=== PATIENT | female | born 1970 | race Caucasian/White ===

== ENCOUNTER 2016-10-22 11:44 | Emergency (ER) | payer OTHER ==
[~2016-10-22 11:44] MED LIST: BIOT50004 PO; CALCTAB73 PO; COUM2.5T11 PO; DOCU100T8 PO; DOCUSATE OR; EFFE150C PO; LEUP375KIT IM; PERC5TAB6 PO; TYLE167L PO; [UNRECOGNIZED DRUG - OTHER] OR; [UNRECOGNIZED DRUG - OTHER] OR; iron OR; multivitamin OR; vitamin B; vitamin B12 OR
[2016-10-22 12:37] LABS: BASO % 0.3 % (0.0-1.0); EOS # 0.1 K/mm3 (0.0-0.50); EOS % 1.5 % (0.0-3.0); LARGE UNSTAINED CELL # 0.2 K/mm3 (0.0-0.4); LARGE UNSTAINED CELL % 1.6 % (0.0-4.0); LYMPH # 0.9 K/mm3 (1.5-4.5); LYMPH % 10.1 % (24.0-44.0); MEAN CORPUSCULAR HEMOGLOBIN 29.1 pg (27.0-33.0); MEAN CORPUSCULAR HGB CONC 33.1 g/dl (32.0-36.5); MONO # 0.4 K/mm3 (0.0-0.8); MONO % 4.6 % (0.0-5.0); NEUTROPHILS # 7.6 K/mm3 (1.8-7.7); PLATELET COUNT, AUTOMATED 314 k/mm3 (150-450); RED CELL DISTRIBUTION WIDTH 12.3 % (11.5-14.5); WHITE BLOOD COUNT 9.3 K/mm3 (4.0-10.0)
[2016-10-22 12:53] LABS: CONTROL LINE HCG INT CTR LINE PRESENT
[2016-10-22 13:02] LABS: ALBUMIN 3.6 GM/DL (3.2-5.2); ALBUMIN/GLOBULIN RATIO 0.92 (1.00-1.93); ALKALINE PHOSPHATASE 58 U/L (45-117); ALT/SGPT 39 U/L (12-78); ANION GAP 7 MEQ/L (8-16); AST/SGOT 24 U/L (15-37); BILIRUBIN,DIRECT < 0.1 MG/DL (0.0-0.2); BILIRUBIN,TOTAL 0.2 MG/DL (0.2-1.0); BLOOD UREA NITROGEN 12 MG/DL (7-18); CALCIUM LEVEL 8.4 MG/DL (8.5-10.1); CARBON DIOXIDE LEVEL 29 MEQ/L (21-32); CHLORIDE LEVEL 106 MEQ/L (98-107); CREATININE FOR GFR 0.75 MG/DL (0.55-1.02); FREE T4 0.81 NG/DL (0.76-1.46); GLOMERULAR FILTRATION RATE > 60.0 (>58); GLUCOSE, FASTING 86 MG/DL (70-105); POTASSIUM SERUM 4.4 MEQ/L (3.5-5.1); SODIUM LEVEL 142 MEQ/L (136-145); TOTAL PROTEIN 7.5 GM/DL (6.4-8.2)
--- NOTE | 2016-10-22 13:20 | REP ---
Clinical: Near-syncopal episode . Comparison: 06/22/2015 . Technique: PA and lateral. Findings: The mediastinum and cardiac silhouette are normal. The lung quesada are clear and without acute consolidation, effusion, or pneumothorax. The skeletal structures are intact and normal. Impression: 1. No acute cardiopulmonary process. Signed by Guillermo Jonas MD 10/22/2016 01:12 P
--- NOTE | 2016-10-22 15:54 | EDDOCDS ---
Physician Documentation [facility] Name: Na De Jesus Age: 46 yrs Sex: Female : 1970 Arrival Date: 10/22/2016 Time: 11:44 Bed 21 Private MD: Angelina Dunn A Disposition: 10/22 15:44 Critical Care: Critical care not applicable. le Disposition: 10/22/16 15:44 Discharged to Home/Self Care. Impression: Dizziness and giddiness. - Condition is Stable. - Discharge Instructions: Dizziness. - Medication Reconciliation, Local Pharmacy Hours form. - Follow up: Angelina Dunn; When: Call to arrange an appointment; Reason: Further diagnostic work-up, Recheck today's complaints, Continuance of care. - Problem is new. - Symptoms are resolved. - Notes: Keep hydrated Return to the ED for any further concerns Historical: - Allergies: no known allergies; - Home Meds: 1. Effexor XR 150 mg Oral cp24 1 cap once daily - PMHx: none; - PSHx: Gastric Bypass; hip replacement; - Social history: Smoking status: Patient/guardian denies using No barriers to communication noted, The patient speaks fluent Tanzanian. - Family history: Pertinent for similar symptoms recently. - : The pt / caregiver states he / she is not on anticoagulants. Home medication list is obtained from the patient. - Exposure Risk Screening:: None identified. NET DEVELOPER WITH [facility]: 11:51 LMP 09/20/2016 dls Vital Signs: 11:45 BP 132 / 71; Pulse 85; Resp 18; Temp 97.0(O); Pulse Ox 99% ; Weight 72.57 kg / 159.99 ct3 lbs (R); Height 5 ft. 6 in. (167.64 cm); Pain 0/10; 12:34 BP 98 / 54 Supine; Pulse 75; Pulse Ox 98% on R/A; kr3 12:34 BP 132 / 71 Sitting; Pulse 78; Pulse Ox 100% on R/A; kr3 12:34 BP 116 / 72 Standing; Pulse 88; Pulse Ox 100% on R/A; kr3 12:49 BP 96 / 60 (auto/); kr3 12:49 Pulse 64 MON; Pulse Ox 100% ; kr3 13:19 BP 101 / 66 (auto/); kr3 13:19 Pulse 76 MON; Pulse Ox 99% ; kr3 13:49 BP 108 / 62 (auto/); kr3 13:49 Pulse 68 MON; Pulse Ox 99% ; kr3 14:19 BP 109 / 62 (auto/); kr3 14:19 Pulse 62 MON; Pulse Ox 99% ; kr3 15:19 BP 100 / 55 (auto/); ld5 15:19 Pulse 68 MON; Pulse Ox 98% ; ld5 15:52 BP 102 / 56; Pulse 66; Resp 16; Temp 97.1; Pulse Ox 98% on R/A; Pain 0/10; ld5 11:45 Body Mass Index 25.82 (72.57 kg, 167.64 cm) ct3 MDM: 11:57 ECG WITH READING ER PHYS+CARDIAG ordered. EDMS 11:59 Orthostatic VS ordered. ml 11:59 IV Saline Lock ordered. ml 12:00 CBC with Diff Ordered. EDMS 12:00 MED Profile Ordered. EDMS 12:00 CIP Ordered. EDMS 12:00 Troponin Ordered. EDMS 12:00 Liver Profile Ordered. EDMS 12:00 FreeT4 with TSH Ordered. EDMS 12:00 HCG,Serum Qualitative Ordered. EDMS 12:46 Chest, 2 View (pa\E\lat) Ordered. EDMS 13:19 NS 0.9% 1000 ml IV at bolus once ordered. le 13:19 Repeat EKG (put time details section) ordered. le 13:19 Redraw CIP &Troponin (put time in details section) ordered. le 13:20 CBC with Diff Reviewed. le 13:20 MED Profile Reviewed. le 13:20 Liver Profile Reviewed. le 13:20 CIP Reviewed. le 13:20 Troponin Reviewed. le 13:20 FreeT4 with TSH Reviewed. le 13:20 HCG,Serum Qualitative Reviewed. le 13:21 REGULAR+DIET ordered. EDMS 14:34 Redraw CIP &Troponin (put time in details section) complete. ar3 14:34 CARDIAC MARKER PANEL Ordered. EDMS 14:35 Repeat EKG (put time details section) complete. ar3 14:35 ECG WITH READING ER PHYS ordered. EDMS 15:13 CARDIAC MARKER PANEL Reviewed. le 15:13 Chest, 2 View (pa\E\lat) Reviewed. le 15:14 Ambulate Patient to Assess Patient Safety ordered. le 15:34 Financial registration complete. gjb Administered Medications: 13:32 Drug: NS 0.9% 1000 ml [sodium chloride 0.9 % intravenous solution] Route: IV; Rate: kr3 bolus; Site: right antecubital; 15:42 Follow up: IV Status: Completed infusion; IV Intake: 1000ml ld5 Signatures: Dispatcher [employer] EDMS Jaleesa Chilel MD MD ml Scott, Debra, RN RN dls Tequila Chavez, AUDIO PRODUCTION ENGINEER AUDIO PRODUCTION ENGINEER Simi Sánchez, BRENDA SOUP PERSON ar3 Maddie Diego RN RN ld5 Mel Rivers Kathleen RN kr3 The chart was reviewed and I authenticate all verbal orders and agree with the evaluation and treatment provided.Corrections: (The following items were deleted from the chart) 12:56 12:00 Chest, 1 view+XR ordered. EDMS EDMS MTDD
--- NOTE | 2016-10-22 15:54 | EDDOCDS ---
Nurse's Notes [facility] Name: Na De Jesus Age: 46 yrs Sex: Female : 1970 Arrival Date: 10/22/2016 Time: 11:44 Bed 21 Private MD: Angelina Dunn A Diagnosis: Dizziness and giddiness Presentation: 10/22 11:47 Presenting complaint: Patient states: Pt presents stating felt funny when she woke up dls this morning went out and shoveled snow developed palpations and dizziness pt states almost drove off road and almost fell down coming into ED. Pt states she feels like vision is blurry denies chest pain hx gastric bypass. Adult Sepsis Screening: The patient does not have new or worsening altered mentation. Patient's respiratory rate is less than 22. Systolic blood pressure is greater than 100. Patient has a qSOFA score of 0- Negative Sepsis Screen. Suicide/Homicide risk assessment- the patient denies having any suicidal and/or homicidal ideations and does not present with any other emotional, behavioral or mental health complaints. Status: Patient is not a student services coordinator or dependent. Transition of care: patient was not received from another setting of care. 11:47 Acuity: SALINA Level 3 dls 11:47 Method Of Arrival: Walkin/Carried/Asstd dls Triage Assessment: 11:51 General: Appears cachectic, uncomfortable, well developed, well nourished, Behavior is dls cooperative. Pain: Denies pain. HIV screening NA for this visit Offered previously. DEBEADER: 11:51 LMP 09/20/2016 dls Historical: - Allergies: no known allergies; - Home Meds: 1. Effexor XR 150 mg Oral cp24 1 cap once daily - PMHx: none; - PSHx: Gastric Bypass; hip replacement; - Social history: Smoking status: Patient/guardian denies using No barriers to communication noted, The patient speaks fluent Indonesian. - Family history: Pertinent for similar symptoms recently. - : The pt / caregiver states he / she is not on anticoagulants. Home medication list is obtained from the patient. - Exposure Risk Screening:: None identified. Screenin:32 Screening information is obtained from the patient. Fall risk: No risks identified. kr3 Assistance ADL's: requires no assistance with activities of daily living. Abuse/DV Screen: The patient / caregiver reports he/she is: not in a situation that causes fear, pain or injury. Nutritional screening: No deficits noted. Advance Directives: Currently, there is no health care proxy. home support is adequate. Assessment: 12:32 Reassessment: Patient appears in no apparent distress at this time. Reassessment: kr3 orthostatic vital signs obtained with no problems. Patient reports feels best when lying on stretcher with was able to sit and stand with no difficulty. . Pain: Denies pain. Respiratory: Respiratory effort is even, unlabored. Derm: Skin is pink, warm & dry. 13:32 Reassessment: Patient appears in no apparent distress at this time. Cardiovascular: kr3 Rhythm is sinus rhythm. Respiratory: Respiratory pattern is regular. Derm: Skin is pink, warm & dry. 14:36 Reassessment: Patient appears in no apparent distress at this time. Patient states kr3 feeling better. Neurological: Level of Consciousness is awake, alert. Respiratory: Respiratory effort is even, unlabored. 15:42 General: Pt ambulated down the ramesh and to the bathroom. Tolerated well. Gait steady. ld5 Denies dizziness at this time. Reports feeling "a whole lot better". Provider aware. Will continue to monitor. 15:52 General: Appears in no apparent distress, Behavior is cooperative. Pain: Denies pain. ld5 Neurological: Denies weakness dizziness. Respiratory: Airway is patent Respiratory effort is even, unlabored. Vital Signs: 11:45 BP 132 / 71; Pulse 85; Resp 18; Temp 97.0(O); Pulse Ox 99% ; Weight 72.57 kg (R); ct3 Height 5 ft. 6 in. (167.64 cm); Pain 0/10; 12:34 BP 98 / 54 Supine; Pulse 75; Pulse Ox 98% on R/A; kr3 12:34 BP 132 / 71 Sitting; Pulse 78; Pulse Ox 100% on R/A; kr3 12:34 BP 116 / 72 Standing; Pulse 88; Pulse Ox 100% on R/A; kr3 12:49 BP 96 / 60 (auto/); kr3 12:49 Pulse 64 MON; Pulse Ox 100% ; kr3 13:19 BP 101 / 66 (auto/); kr3 13:19 Pulse 76 MON; Pulse Ox 99% ; kr3 13:49 BP 108 / 62 (auto/); kr3 13:49 Pulse 68 MON; Pulse Ox 99% ; kr3 14:19 BP 109 / 62 (auto/); kr3 14:19 Pulse 62 MON; Pulse Ox 99% ; kr3 15:19 BP 100 / 55 (auto/); ld5 15:19 Pulse 68 MON; Pulse Ox 98% ; ld5 15:52 BP 102 / 56; Pulse 66; Resp 16; Temp 97.1; Pulse Ox 98% on R/A; Pain 0/10; ld5 11:45 Body Mass Index 25.82 (72.57 kg, 167.64 cm) ct3 Vitals: 11:45 Log In Time: October 22, 2016 at 11:43. ct3 ED Course: 11:45 Patient visited by Nori Marie PCA. ct3 11:45 Angelina Dunn is Private Physician. ct3 11:45 Patient moved to Waiting ct3 11:47 Patient moved to Pre RCE ct3 11:50 Triage Initiated dls 11:52 Patient moved to PD2 / dls 11:55 Olivia Isabel,EZ is Primary Nurse. kcs 11:55 Patient moved to 21 kcs 12:02 EKG done. (by ED staff). Reviewed by Tequila PEREZ. ar3 12:05 Patient visited by Simi Fontenot PCA. ar3 12:32 The patient / caregiver is instructed regarding the plan of care and ED course. Patient uzma has correct armband on for positive identification. Placed in gown. Bed in low position. Call light in reach. Side rails up X2. gambling monitor on. Pulse ox on. NIBP on. 12:32 Inserted saline lock: 20 gauge in right antecubital area and blood collected. The uzma patient tolerated the procedure well. 12:35 Tequila Chavez FNP is PHCP. le 12:36 Patient visited by Tequila Chavez FNP. le 12:36 Patient visited by Tequila Chavez FNP. le 13:29 Patient visited by Olivia Isabel,EZ. kr3 13:49 Chest, 2 View (pa\\E\\lat) Returned. EDMS 14:33 Patient visited by Olivia Isabel RN. kr3 14:36 CARDIAC MARKER PANEL Sent. kr3 14:37 Diet tray given. kr3 15:29 EKG done. (by ED staff). Reviewed by Tequila PEREZ. ar3 15:43 Patient visited by Maddie Diego RN. ld5 15:43 Angelina Dunn is Referral Physician. le 15:52 Discontinued lock intact, bleeding controlled, pressure dressing applied, No ld5 redness/swelling at site. No procedures done that require assistance. 15:53 Patient visited by Maddie Diego RN. ld5 Administered Medications: 13:32 Drug: NS 0.9% 1000 ml [sodium chloride 0.9 % intravenous solution] Route: IV; Rate: kr3 bolus; Site: right antecubital; 15:42 Follow up: IV Status: Completed infusion; IV Intake: 1000ml ld5 Intake: 15:42 IV: 1000.00ml; Total: 1000.00ml. ld5 Order Results: Lab Order: CBC with Diff; SPEC'M 10/22/16 12:30 Test: WHITE BLOOD COUNT; Value: 9.3; Range: 4.0-10.0; Units: K/mm3; Status: F Test: RED BLOOD COUNT; Value: 4.27; Range: 4.00-5.40; Units: M/mm3; Status: F Test: HEMOGLOBIN; Value: 12.4; Range: 12.0-16.0; Units: g/dl; Status: F Test: HEMATOCRIT; Value: 37.5; Range: 36.0-47.0; Units: %; Status: F Test: MEAN CORPUSCULAR VOLUME; Value: 88.0; Range: 80.0-96.0; Units: fl; Status: F Test: MEAN CORPUSCULAR HEMOGLOBIN; Value: 29.1; Range: 27.0-33.0; Units: pg; Status: F Test: MEAN CORPUSCULAR HGB CONC; Value: 33.1; Range: 32.0-36.5; Units: g/dl; Status: F Test: RED CELL DISTRIBUTION WIDTH; Value: 12.3; Range: 11.5-14.5; Units: %; Status: F Test: PLATELET COUNT, AUTOMATED; Value: 314; Range: 150-450; Units: k/mm3; Status: F Test: NEUTROPHILS %; Value: 82.0; Range: 36.0-66.0; Abnormal: Above high normal; Units: %; Status: F Test: LYMPH %; Value: 10.1; Range: 24.0-44.0; Abnormal: Below low normal; Units: %; Status: F Test: MONO %; Value: 4.6; Range: 0.0-5.0; Units: %; Status: F Test: EOS %; Value: 1.5; Range: 0.0-3.0; Units: %; Status: F Test: BASO %; Value: 0.3; Range: 0.0-1.0; Units: %; Status: F Test: LARGE UNSTAINED CELL %; Value: 1.6; Range: 0.0-4.0; Units: %; Status: F Test: NEUTROPHILS #; Value: 7.6; Range: 1.8-7.7; Units: K/mm3; Status: F Test: LYMPH #; Value: 0.9; Range: 1.5-4.5; Abnormal: Below low normal; Units: K/mm3; Status: F Test: MONO #; Value: 0.4; Range: 0.0-0.8; Units: K/mm3; Status: F Test: EOS #; Value: 0.1; Range: 0.0-0.50; Units: K/mm3; Status: F Test: BASO #; Value: 0.0; Range: 0.0-0.2; Units: K/mm3; Status: F Test: LARGE UNSTAINED CELL #; Value: 0.2; Range: 0.0-0.4; Units: K/mm3; Status: F Lab Order: MED Profile; SPEC'M 10/22/16 12:30 Test: GLUCOSE, FASTING; Value: 86; Range: 70-105; Units: MG/DL; Status: F Test: BLOOD UREA NITROGEN; Value: 12; Range: 7-18; Units: MG/DL; Status: F Test: CREATININE FOR GFR; Value: 0.75; Range: 0.55-1.02; Units: MG/DL; Status: F Test: SODIUM LEVEL; Range: 136-145; Units: MEQ/L; Status: I Test: POTASSIUM SERUM; Range: 3.5-5.1; Units: MEQ/L; Status: I Test: CHLORIDE LEVEL; Range: 98-107; Units: MEQ/L; Status: I Test: CARBON DIOXIDE LEVEL; Range: 21-32; Units: MEQ/L; Status: I Test: ANION GAP; Range: 8-16; Units: MEQ/L; Status: I Test: CALCIUM LEVEL; Range: 8.5-10.1; Units: MG/DL; Status: I Test: GLOMERULAR FILTRATION RATE; Value: > 60.0; Range: >58; Status: F Test: SODIUM LEVEL; Value: 142; Range: 136-145; Units: MEQ/L; Status: F Test: POTASSIUM SERUM; Value: 4.4; Range: 3.5-5.1; Units: MEQ/L; Status: F Test: CHLORIDE LEVEL; Value: 106; Range: 98-107; Units: MEQ/L; Status: F Test: CARBON DIOXIDE LEVEL; Value: 29; Range: 21-32; Units: MEQ/L; Status: F Test: ANION GAP; Value: 7; Range: 8-16; Abnormal: Below low normal; Units: MEQ/L; Status: F Test: CALCIUM LEVEL; Value: 8.4; Range: 8.5-10.1; Abnormal: Below low normal; Units: MG/DL; Status: F Test Note: ; Units are mL/min/1.73 m2 Chronic Kidney Disease Staging per NKF: Stage I & II GFR >=60 Normal to Mildly Decreased Stage III GFR 30-59 Moderately Decreased Stage IV GFR 15-29 Severely Decreased Stage V GFR <15 Very Little GFR Left ESRD GFR <15 on DIRECTOR IMAGING Lab Order: CIP; SPEC'M 10/22/16 12:30 Test: CPK CREATINE PHOSPHOKINASE; Value: 86; Range: 26-192; Units: U/L; Status: F Test: CK-MB VALUE MASS; Value: 1.0; Range: 0.0-3.6; Units: NG/ML; Status: F Test: MB/CK RELATIVE INDEX; Value: 1.16; Range: < OR =4; Status: F Test Note: ; DIAGNOSIS CRITERIA MMB ng/ml Relative Index (RI) NON-AMI < or = 5 N/A LUGO ZONE > 5 < or = 4 AMI > 5 > 4 Lab Order: Troponin; SPEC'M 10/22/16 12:30 Test: TROPONIN I; Value: < 0.02; Range: < 0.10; Units: NG/ML; Status: F Test Note: ; Troponin I Reference Interval for [facility] LOCI: 99th Percentile= 0.00-0.045 ng/ml Risk Stratification: <= 0.10 ng/ml Decreased Risk for Adverse Clinical Events. 0.10-1.50 ng/ml Increased Risk for Adverse Clinical Events. Evaluation of additional criterion and/or repeat testing in 2-6 hours is suggested to rule out myocardial damage. >= 1.50 ng/ml Indicative of Myocardial Injury. Lab Order: Liver Profile; SPEC'10/22/16 12:30 Test: AST/SGOT; Value: 24; Range: 15-37; Units: U/L; Status: F Test: ALT/SGPT; Value: 39; Range: 12-78; Units: U/L; Status: F Test: ALKALINE PHOSPHATASE; Value: 58; Range: 45-117; Units: U/L; Status: F Test: BILIRUBIN,TOTAL; Value: 0.2; Range: 0.2-1.0; Units: MG/DL; Status: F Test: BILIRUBIN,DIRECT; Value: < 0.1; Range: 0.0-0.2; Units: MG/DL; Status: F Test: TOTAL PROTEIN; Value: 7.5; Range: 6.4-8.2; Units: GM/DL; Status: F Test: ALBUMIN; Value: 3.6; Range: 3.2-5.2; Units: GM/DL; Status: F Test: ALBUMIN/GLOBULIN RATIO; Value: 0.92; Range: 1.00-1.93; Abnormal: Below low normal; Status: F Lab Order: FreeT4 with TSH; SPEC'10/22/16 12:30 Test: THYROID STIMULATING HORMONE; Value: 1.750; Range: 0.358-3.740; Units: uIU/ML; Status: F Test: FREE T4; Value: 0.81; Range: 0.76-1.46; Units: NG/DL; Status: F Lab Order: HCG,Serum Qualitative; SPEC'10/22/16 12:30 Test: HCG, SERUM QUALITATIVE; Value: NEGATIVE; Range: NEGATIVE; Status: F Lab Order: CARDIAC MARKER PANEL; SPEC'M 10/22/16 14:33 Test: CPK CREATINE PHOSPHOKINASE; Value: 74; Range: 26-192; Units: U/L; Status: F Test: CK-MB VALUE MASS; Value: 1.5; Range: 0.0-3.6; Units: NG/ML; Status: F Test: MB/CK RELATIVE INDEX; Value: 2.02; Range: < OR =4; Status: F Test: TROPONIN I; Value: < 0.02; Range: < 0.10; Units: NG/ML; Status: F Test Note: ; DIAGNOSIS CRITERIA MMB ng/ml Relative Index (RI) NON-AMI < or = 5 N/A LUGO ZONE > 5 < or = 4 AMI > 5 > 4 Radiology Order: Chest, 2 View (pa\\E\\lat) Test: Chest, 2 View (pa\\E\\lat) REASON FOR EXAMINATION: near syncope; Clinical: Near-syncopal episode .; ; Comparison: 06/22/2015 .; ; Technique: PA and lateral.; ; Findings:; The mediastinum and cardiac silhouette are normal. The lung quesada are clear and; without acute consolidation, effusion, or pneumothorax. The skeletal structures; are intact and normal.; ; Impression:; 1. No acute cardiopulmonary process.; ; ; Signed by; Guillermo Jonas MD 10/22/2016 01:12 P; Outcome: 15:44 Discharge ordered by Provider. susan 15:52 Discharge Assessment: Patient awake, alert and oriented x 3. No cognitive and/or ld5 functional deficits noted. Patient verbalized understanding of disposition instructions. Patient awake and alert. patient administered narcotics - no. The following High Risk Discharge criteria are identified: None. Discharged to home ambulatory. Condition: stable. Discharge instructions given to patient, Instructed on discharge instructions, follow up and referral plans. Demonstrated understanding of instructions, Pt was receptive of discharge instructions/ teaching. No special radiology studies were completed. Property :Personal belongings accompany Pt. 15:53 Patient left the ED. ld5 Signatures: Dispatcher [employer] EDChio Langley RN RN kcs Scott, Debra, RN RN dls Robie, Kathleen, RN RN kr3 Tequila Chavez FNP FNP le Rabon, Alicia, COMPRESSOR BATTERY PELLETS COMPRESSOR BATTERY PELLETS ar3 Maddie Diego,RN RN ld5 Frank, Nori, COMPRESSOR BATTERY PELLETS COMPRESSOR BATTERY PELLETS ct3 MTDD
--- NOTE | 2016-10-23 07:58 | ECGEPIP ---
Stationary ECG Study [facility] - ED Test Date: 2016-10-22 Pat Name: STEPHON ZAVALA Department: Room: - Gender: F Snubber: patti : 1970 Requested By: Jaleesa Chilel Order Number: [id number] Reading MD: Nicolasa Breen Measurements Intervals [place] Rate: 74 P: 67 SD: 139 QRS: 54 QRSD: 94 T: 45 QT: 368 QTc: 410 Interpretive Statements SINUS RHYTHM NSTTW ABNORMALITY INCREASED RATE 06/22/15 Electronically Signed On 10-23-2016 7:58:08 EST by Nicolasa Breen
--- NOTE | 2016-10-23 08:04 | ECGEPIP ---
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
--- NOTE | 2016-10-24 16:55 | EDDOCDS ---
Nurse's Notes [facility] Name: Stephon Zavala Age: 46 yrs Sex: Female : 1970 Arrival Date: 10/22/2016 Time: 11:44 Bed 21 Private MD: Angelina Dunn A Diagnosis: Dizziness and giddiness Presentation: 10/22 11:47 Presenting complaint: Patient states: Pt presents stating felt funny when she woke up dls this morning went out and shoveled snow developed palpations and dizziness pt states almost drove off road and almost fell down coming into ED. Pt states she feels like vision is blurry denies chest pain hx gastric bypass. Adult Sepsis Screening: The patient does not have new or worsening altered mentation. Patient's respiratory rate is less than 22. Systolic blood pressure is greater than 100. Patient has a qSOFA score of 0- Negative Sepsis Screen. Suicide/Homicide risk assessment- the patient denies having any suicidal and/or homicidal ideations and does not present with any other emotional, behavioral or mental health complaints. Status: Patient is not a services executive or dependent. Transition of care: patient was not received from another setting of care. 11:47 Acuity: SALINA Level 3 dls 11:47 Method Of Arrival: Walkin/Carried/Asstd dls Triage Assessment: 11:51 General: Appears cachectic, uncomfortable, well developed, well nourished, Behavior is dls cooperative. Pain: Denies pain. HIV screening NA for this visit Offered previously. 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 Effexor XR 150 mg Oral cp24 1 cap once daily - PMHx: none; - PSHx: Gastric Bypass; hip replacement; - Social history: Smoking status: Patient/guardian denies using No barriers to communication noted, The patient speaks fluent Swedish. - Family history: Pertinent for similar symptoms recently. - : The pt / caregiver states he / she is not on anticoagulants. Home medication list is obtained from the patient. - Exposure Risk Screening:: None identified. Screenin:32 Screening information is obtained from the patient. Fall risk: No risks identified. kr3 Assistance ADL's: requires no assistance with activities of daily living. Abuse/DV Screen: The patient / caregiver reports he/she is: not in a situation that causes fear, pain or injury. Nutritional screening: No deficits noted. Advance Directives: Currently, there is no health care proxy. home support is adequate. Assessment: 12:32 Reassessment: Patient appears in no apparent distress at this time. Reassessment: kr3 orthostatic vital signs obtained with no problems. Patient reports feels best when lying on stretcher with was able to sit and stand with no difficulty. . Pain: Denies pain. Respiratory: Respiratory effort is even, unlabored. Derm: Skin is pink, warm & dry. 13:32 Reassessment: Patient appears in no apparent distress at this time. Cardiovascular: kr3 Rhythm is sinus rhythm. Respiratory: Respiratory pattern is regular. Derm: Skin is pink, warm & dry. 14:36 Reassessment: Patient appears in no apparent distress at this time. Patient states kr3 feeling better. Neurological: Level of Consciousness is awake, alert. Respiratory: Respiratory effort is even, unlabored. 15:42 General: Pt ambulated down the ramesh and to the bathroom. Tolerated well. Gait steady. ld5 Denies dizziness at this time. Reports feeling "a whole lot better". Provider aware. Will continue to monitor. 15:52 General: Appears in no apparent distress, Behavior is cooperative. Pain: Denies pain. ld5 Neurological: Denies weakness dizziness. Respiratory: Airway is patent Respiratory effort is even, unlabored. Vital Signs: 11:45 BP 132 / 71; Pulse 85; Resp 18; Temp 97.0(O); Pulse Ox 99% ; Weight 72.57 kg (R); ct3 Height 5 ft. 6 in. (167.64 cm); Pain 0/10; 12:34 BP 98 / 54 Supine; Pulse 75; Pulse Ox 98% on R/A; kr3 12:34 BP 132 / 71 Sitting; Pulse 78; Pulse Ox 100% on R/A; kr3 12:34 BP 116 / 72 Standing; Pulse 88; Pulse Ox 100% on R/A; kr3 12:49 BP 96 / 60 (auto/); kr3 12:49 Pulse 64 MON; Pulse Ox 100% ; kr3 13:19 BP 101 / 66 (auto/); kr3 13:19 Pulse 76 MON; Pulse Ox 99% ; kr3 13:49 BP 108 / 62 (auto/); kr3 13:49 Pulse 68 MON; Pulse Ox 99% ; kr3 14:19 BP 109 / 62 (auto/); kr3 14:19 Pulse 62 MON; Pulse Ox 99% ; kr3 15:19 BP 100 / 55 (auto/); ld5 15:19 Pulse 68 MON; Pulse Ox 98% ; ld5 15:52 BP 102 / 56; Pulse 66; Resp 16; Temp 97.1; Pulse Ox 98% on R/A; Pain 0/10; ld5 11:45 Body Mass Index 25.82 (72.57 kg, 167.64 cm) ct3 Vitals: 11:45 Log In Time: October 22, 2016 at 11:43. ct3 ED Course: 11:45 Patient visited by Nori Marie PCA. ct3 11:45 Angelina Dunn is Private Physician. ct3 11:45 Patient moved to Waiting ct3 11:47 Patient moved to Pre RCE ct3 11:50 Triage Initiated dls 11:52 Patient moved to PD2 / dls 11:55 Olivia Isabel,EZ is Primary Nurse. kcs 11:55 Patient moved to 21 kcs 12:02 EKG done. (by ED staff). Reviewed by Tequila PEREZ. ar3 12:05 Patient visited by Simi Fontenot PCA. ar3 12:32 The patient / caregiver is instructed regarding the plan of care and ED course. Patient uzma has correct armband on for positive identification. Placed in gown. Bed in low position. Call light in reach. Side rails up X2. satellite project site monitor on. Pulse ox on. NIBP on. 12:32 Inserted saline lock: 20 gauge in right antecubital area and blood collected. The uzma patient tolerated the procedure well. 12:35 Tequila Chavez FNP is PHCP. le 12:36 Patient visited by Tequila Chavez FNP. le 12:36 Patient visited by Tequila Chavez FNP. le 13:29 Patient visited by Olivia Isabel,EZ. kr3 13:49 Chest, 2 View (pa\\E\\lat) Returned. EDMS 14:33 Patient visited by Olivia Isabel RN. kr3 14:36 CARDIAC MARKER PANEL Sent. kr3 14:37 Diet tray given. kr3 15:29 EKG done. (by ED staff). Reviewed by Tequila PEREZ. ar3 15:43 Patient visited by Maddie Diego RN. ld5 15:43 Angelina Dunn is Referral Physician. le 15:52 Discontinued lock intact, bleeding controlled, pressure dressing applied, No ld5 redness/swelling at site. No procedures done that require assistance. 15:53 Patient visited by Maddie Diego RN. ld5 15:59 [facility] Payment Agreement was scanned into [employer] and attached to record. gjb 10/23 08:04 EKG-ADULT Returned. EDMS 08:40 ECG WITH READING ER PHYS Returned. EDMS 13:47 T-Sheet-- Draft Copy was scanned into T[employer] and attached to record. gb 13:48 ECG/EKG was scanned into [employer] and attached to record. gb 13:48 Trend VS was scanned into T[employer] and attached to record. gb Administered Medications: 10/22 13:32 Drug: NS 0.9% 1000 ml [sodium chloride 0.9 % intravenous solution] Route: IV; Rate: kr3 bolus; Site: right antecubital; 15:42 Follow up: IV Status: Completed infusion; IV Intake: 1000ml ld5 Attachments: 13:48 Trend VS gb Intake: 10/22 15:42 IV: 1000.00ml; Total: 1000.00ml. ld5 Order Results: Lab Order: CBC with Diff; SPEC'M 10/22/16 12:30 Test: WHITE BLOOD COUNT; Value: 9.3; Range: 4.0-10.0; Units: K/mm3; Status: F Test: RED BLOOD COUNT; Value: 4.27; Range: 4.00-5.40; Units: M/mm3; Status: F Test: HEMOGLOBIN; Value: 12.4; Range: 12.0-16.0; Units: g/dl; Status: F Test: HEMATOCRIT; Value: 37.5; Range: 36.0-47.0; Units: %; Status: F Test: MEAN CORPUSCULAR VOLUME; Value: 88.0; Range: 80.0-96.0; Units: fl; Status: F Test: MEAN CORPUSCULAR HEMOGLOBIN; Value: 29.1; Range: 27.0-33.0; Units: pg; Status: F Test: MEAN CORPUSCULAR HGB CONC; Value: 33.1; Range: 32.0-36.5; Units: g/dl; Status: F Test: RED CELL DISTRIBUTION WIDTH; Value: 12.3; Range: 11.5-14.5; Units: %; Status: F Test: PLATELET COUNT, AUTOMATED; Value: 314; Range: 150-450; Units: k/mm3; Status: F Test: NEUTROPHILS %; Value: 82.0; Range: 36.0-66.0; Abnormal: Above high normal; Units: %; Status: F Test: LYMPH %; Value: 10.1; Range: 24.0-44.0; Abnormal: Below low normal; Units: %; Status: F Test: MONO %; Value: 4.6; Range: 0.0-5.0; Units: %; Status: F Test: EOS %; Value: 1.5; Range: 0.0-3.0; Units: %; Status: F Test: BASO %; Value: 0.3; Range: 0.0-1.0; Units: %; Status: F Test: LARGE UNSTAINED CELL %; Value: 1.6; Range: 0.0-4.0; Units: %; Status: F Test: NEUTROPHILS #; Value: 7.6; Range: 1.8-7.7; Units: K/mm3; Status: F Test: LYMPH #; Value: 0.9; Range: 1.5-4.5; Abnormal: Below low normal; Units: K/mm3; Status: F Test: MONO #; Value: 0.4; Range: 0.0-0.8; Units: K/mm3; Status: F Test: EOS #; Value: 0.1; Range: 0.0-0.50; Units: K/mm3; Status: F Test: BASO #; Value: 0.0; Range: 0.0-0.2; Units: K/mm3; Status: F Test: LARGE UNSTAINED CELL #; Value: 0.2; Range: 0.0-0.4; Units: K/mm3; Status: F Lab Order: MED Profile; SPEC'M 10/22/16 12:30 Test: GLUCOSE, FASTING; Value: 86; Range: 70-105; Units: MG/DL; Status: F Test: BLOOD UREA NITROGEN; Value: 12; Range: 7-18; Units: MG/DL; Status: F Test: CREATININE FOR GFR; Value: 0.75; Range: 0.55-1.02; Units: MG/DL; Status: F Test: SODIUM LEVEL; Range: 136-145; Units: MEQ/L; Status: I Test: POTASSIUM SERUM; Range: 3.5-5.1; Units: MEQ/L; Status: I Test: CHLORIDE LEVEL; Range: 98-107; Units: MEQ/L; Status: I Test: CARBON DIOXIDE LEVEL; Range: 21-32; Units: MEQ/L; Status: I Test: ANION GAP; Range: 8-16; Units: MEQ/L; Status: I Test: CALCIUM LEVEL; Range: 8.5-10.1; Units: MG/DL; Status: I Test: GLOMERULAR FILTRATION RATE; Value: > 60.0; Range: >58; Status: F Test: SODIUM LEVEL; Value: 142; Range: 136-145; Units: MEQ/L; Status: F Test: POTASSIUM SERUM; Value: 4.4; Range: 3.5-5.1; Units: MEQ/L; Status: F Test: CHLORIDE LEVEL; Value: 106; Range: 98-107; Units: MEQ/L; Status: F Test: CARBON DIOXIDE LEVEL; Value: 29; Range: 21-32; Units: MEQ/L; Status: F Test: ANION GAP; Value: 7; Range: 8-16; Abnormal: Below low normal; Units: MEQ/L; Status: F Test: CALCIUM LEVEL; Value: 8.4; Range: 8.5-10.1; Abnormal: Below low normal; Units: MG/DL; Status: F Test Note: ; Units are mL/min/1.73 m2 Chronic Kidney Disease Staging per NKF: Stage I & II GFR >=60 Normal to Mildly Decreased Stage III GFR 30-59 Moderately Decreased Stage IV GFR 15-29 Severely Decreased Stage V GFR <15 Very Little GFR Left ESRD GFR <15 on BLOCK HANDLER Lab Order: [facility]; SPEC'M 10/22/16 12:30 Test: CPK CREATINE PHOSPHOKINASE; Value: 86; Range: 26-192; Units: U/L; Status: F Test: CK-MB VALUE MASS; Value: 1.0; Range: 0.0-3.6; Units: NG/ML; Status: F Test: MB/CK RELATIVE INDEX; Value: 1.16; Range: < OR =4; Status: F Test Note: ; DIAGNOSIS CRITERIA MMB ng/ml Relative Index (RI) NON-AMI < or = 5 N/A LUGO ZONE > 5 < or = 4 AMI > 5 > 4 Lab Order: Troponin; SPEC'M 10/22/16 12:30 Test: TROPONIN I; Value: < 0.02; Range: < 0.10; Units: NG/ML; Status: F Test Note: ; Troponin I Reference Interval for howsimple LOCI: 99th Percentile= 0.00-0.045 ng/ml Risk Stratification: <= 0.10 ng/ml Decreased Risk for Adverse Clinical Events. 0.10-1.50 ng/ml Increased Risk for Adverse Clinical Events. Evaluation of additional criterion and/or repeat testing in 2-6 hours is suggested to rule out myocardial damage. >= 1.50 ng/ml Indicative of Myocardial Injury. Lab Order: Liver Profile; SPEC'M 10/22/16 12:30 Test: AST/SGOT; Value: 24; Range: 15-37; Units: U/L; Status: F Test: ALT/SGPT; Value: 39; Range: 12-78; Units: U/L; Status: F Test: ALKALINE PHOSPHATASE; Value: 58; Range: 45-117; Units: U/L; Status: F Test: BILIRUBIN,TOTAL; Value: 0.2; Range: 0.2-1.0; Units: MG/DL; Status: F Test: BILIRUBIN,DIRECT; Value: < 0.1; Range: 0.0-0.2; Units: MG/DL; Status: F Test: TOTAL PROTEIN; Value: 7.5; Range: 6.4-8.2; Units: GM/DL; Status: F Test: ALBUMIN; Value: 3.6; Range: 3.2-5.2; Units: GM/DL; Status: F Test: ALBUMIN/GLOBULIN RATIO; Value: 0.92; Range: 1.00-1.93; Abnormal: Below low normal; Status: F Lab Order: FreeT4 with TSH; SPEC'M 10/22/16 12:30 Test: THYROID STIMULATING HORMONE; Value: 1.750; Range: 0.358-3.740; Units: uIU/ML; Status: F Test: FREE T4; Value: 0.81; Range: 0.76-1.46; Units: NG/DL; Status: F Lab Order: HCG,Serum Qualitative; SPEC'M 10/22/16 12:30 Test: HCG, SERUM QUALITATIVE; Value: NEGATIVE; Range: NEGATIVE; Status: F Lab Order: CARDIAC MARKER PANEL; SPEC'M 10/22/16 14:33 Test: CPK CREATINE PHOSPHOKINASE; Value: 74; Range: 26-192; Units: U/L; Status: F Test: CK-MB VALUE MASS; Value: 1.5; Range: 0.0-3.6; Units: NG/ML; Status: F Test: MB/CK RELATIVE INDEX; Value: 2.02; Range: < OR =4; Status: F Test: TROPONIN I; Value: < 0.02; Range: < 0.10; Units: NG/ML; Status: F Test Note: ; DIAGNOSIS CRITERIA MMB ng/ml Relative Index (RI) NON-AMI < or = 5 N/A LUGO ZONE > 5 < or = 4 AMI > 5 > 4 Radiology Order: EKG-ADULT Test: EKG-ADULT REASON FOR EXAMINATION: Syncope; Stationary ECG Study; [facility] - ED; ; Test Date: 2016-10-22; Pat Name: STEPHON ZAVALA Department:; Room: -; Gender: F 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; : 1970 Requested By: Jaleesa Chilel; Order Number: [id number] Reading MD: Nicolasa Breen; Measurements; Intervals Brewer; Rate: 74 P: 67; CA: 139 QRS: 54; QRSD: 94 T: 45; QT: 368; QTc: 410; Interpretive Statements; SINUS RHYTHM; NSTTW ABNORMALITY; INCREASED RATE 06/22/15; ; Electronically Signed On 10-23-2016 7:58:08 EST by Nicolasa Breen; Radiology Order: Chest, 2 View (pa\\E\\lat) Test: Chest, 2 View (pa\\E\\lat) REASON FOR EXAMINATION: near syncope; Clinical: Near-syncopal episode .; ; Comparison: 06/22/2015 .; ; Technique: PA and lateral.; ; Findings:; The mediastinum and cardiac silhouette are normal. The lung quesada are clear and; without acute consolidation, effusion, or pneumothorax. The skeletal structures; are intact and normal.; ; Impression:; 1. 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 le 15:52 Discharge Assessment: Patient awake, alert and oriented x 3. No cognitive and/or ld5 functional deficits noted. Patient verbalized understanding of disposition instructions. Patient awake and alert. patient administered narcotics - no. The following High Risk Discharge criteria are identified: None. Discharged to home ambulatory. Condition: stable. Discharge instructions given to patient, Instructed on discharge instructions, follow up and referral plans. Demonstrated understanding of instructions, Pt was receptive of discharge instructions/ teaching. No special radiology studies were completed. Property :Personal belongings accompany Pt. 15:53 Patient left the ED. ld5 Signatures: Dispatcher [employer] EDChio Langley RN RN kcs Scott, Debra, RN RN dls Barnhardt, Gloria, Olivia Sandoval RN RN kr3 Tequila Chavez, FILLING SEPARATOR FILLING SEPARATOR Simi Sánchez, SHALE PLANER OPERATOR SHALE PLANER OPERATOR ar3 Maddie Diego,RN RN ld5 Nori Marie, SHALE PLANER OPERATOR SHALE PLANER OPERATOR ct3 Mel Rivers Chart Complete MTDD
--- NOTE | 2016-10-24 16:55 | EDDOCDS ---
Physician Documentation [facility] Name: Na De Jesus Age: 46 yrs Sex: Female : 1970 Arrival Date: 10/22/2016 Time: 11:44 Bed 21 Private MD: Angelina Dunn A Disposition: 10/22 15:44 Critical Care: Critical care not applicable. le Disposition: 10/22/16 15:44 Discharged to Home/Self Care. Impression: Dizziness and giddiness. - Condition is Stable. - Discharge Instructions: Dizziness. - Medication Reconciliation, Local Pharmacy Hours form. - Follow up: Angelina Dunn; When: Call to arrange an appointment; Reason: Further diagnostic work-up, Recheck today's complaints, Continuance of care. - Problem is new. - Symptoms are resolved. - Notes: Keep hydrated Return to the ED for any further concerns Historical: - Allergies: no known allergies; - Home Meds: 1. Effexor XR 150 mg Oral cp24 1 cap once daily - PMHx: none; - PSHx: Gastric Bypass; hip replacement; - Social history: Smoking status: Patient/guardian denies using No barriers to communication noted, The patient speaks fluent Uzbek. - Family history: Pertinent for similar symptoms recently. - : The pt / caregiver states he / she is not on anticoagulants. Home medication list is obtained from the patient. - Exposure Risk Screening:: None identified. 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 6 in. (167.64 cm); Pain 0/10; 12:34 BP 98 / 54 Supine; Pulse 75; Pulse Ox 98% on R/A; kr3 12:34 BP 132 / 71 Sitting; Pulse 78; Pulse Ox 100% on R/A; kr3 12:34 BP 116 / 72 Standing; Pulse 88; Pulse Ox 100% on R/A; kr3 12:49 BP 96 / 60 (auto/); kr3 12:49 Pulse 64 MON; Pulse Ox 100% ; kr3 13:19 BP 101 / 66 (auto/); kr3 13:19 Pulse 76 MON; Pulse Ox 99% ; kr3 13:49 BP 108 / 62 (auto/); kr3 13:49 Pulse 68 MON; Pulse Ox 99% ; kr3 14:19 BP 109 / 62 (auto/); kr3 14:19 Pulse 62 MON; Pulse Ox 99% ; kr3 15:19 BP 100 / 55 (auto/); ld5 15:19 Pulse 68 MON; Pulse Ox 98% ; ld5 15:52 BP 102 / 56; Pulse 66; Resp 16; Temp 97.1; Pulse Ox 98% on R/A; Pain 0/10; ld5 11:45 Body Mass Index 25.82 (72.57 kg, 167.64 cm) ct3 MDM: 11:57 ECG WITH READING ER PHYS+CARDIAG ordered. EDMS 11:59 Orthostatic VS ordered. ml 11:59 IV Saline Lock ordered. ml 12:00 CBC with Diff Ordered. EDMS 12:00 MED Profile Ordered. EDMS 12:00 CIP Ordered. EDMS 12:00 Troponin Ordered. EDMS 12:00 Liver Profile Ordered. EDMS 12:00 FreeT4 with TSH Ordered. EDMS 12:00 HCG,Serum Qualitative Ordered. EDMS 12:46 Chest, 2 View (pa\E\lat) Ordered. EDMS 13:19 NS 0.9% 1000 ml IV at bolus once ordered. le 13:19 Repeat EKG (put time details section) ordered. le 13:19 Redraw CIP &Troponin (put time in details section) ordered. le 13:20 CBC with Diff Reviewed. le 13:20 MED Profile Reviewed. le 13:20 Liver Profile Reviewed. le 13:20 CIP Reviewed. le 13:20 Troponin Reviewed. le 13:20 FreeT4 with TSH Reviewed. le 13:20 HCG,Serum Qualitative Reviewed. le 13:21 REGULAR+DIET ordered. EDMS 14:34 Redraw CIP &Troponin (put time in details section) complete. ar3 14:34 CARDIAC MARKER PANEL Ordered. EDMS 14:35 Repeat EKG (put time details section) complete. ar3 14:35 ECG WITH READING ER PHYS ordered. EDMS 15:13 CARDIAC MARKER PANEL Reviewed. le 15:13 Chest, 2 View (pa\E\lat) Reviewed. le 15:14 Ambulate Patient to Assess Patient Safety ordered. le 15:34 Financial registration complete. gjb 15:59 [facility] Payment Agreement was scanned into MED[employer] and attached to record. [facility] 10/23 13:47 T-Sheet-- Draft Copy was scanned into [employer] and attached to record. gb 13:48 ECG/EKG was scanned into [employer] and attached to record. gb 13:48 Trend VS was scanned into [employer] and attached to record. gb Administered Medications: 10/22 13:32 Drug: NS 0.9% 1000 ml [sodium chloride 0.9 % intravenous solution] Route: IV; Rate: kr3 bolus; Site: right antecubital; 15:42 Follow up: IV Status: Completed infusion; IV Intake: 1000ml ld5 Signatures: Dispatcher [employer] EDMS Jaleesa Chilel MD MD ml Scott, Debra, RN RN dls Mattie Azul, Reg Reg gb Tequila Chavez, LAB INTERN LAB INTERN Simi Sánchez, FISH HATCHERY INSPECTOR FISH HATCHERY INSPECTOR ar3 Maddie Diego RN RN ld5 Mel Rivers [facility] Olivia Isabel RN kr3 The chart was reviewed and I authenticate all verbal orders and agree with the evaluation and treatment provided.Corrections: (The following items were deleted from the chart) 12:56 12:00 Chest, 1 view+XR ordered. EDKY EDMS Attachments: 15:59 [facility] Payment Agreement [facility] 10/23 13:47 T-Sheet-- Draft Copy gb 13:48 ECG/EKG gb Chart Complete MTDD
--- NOTE | 2016-10-24 16:56 | EDDOCDS ---
Physician Documentation [facility] Name: Na De Jesus Age: 46 yrs Sex: Female : 1970 Arrival Date: 10/22/2016 Time: 11:44 Bed 21 Private MD: Angelina Dunn A Disposition: 10/22 15:44 Critical Care: Critical care not applicable. le Disposition: 10/22/16 15:44 Discharged to Home/Self Care. Impression: Dizziness and giddiness. - Condition is Stable. - Discharge Instructions: Dizziness. - Medication Reconciliation, Local Pharmacy Hours form. - Follow up: Angelina Dunn; When: Call to arrange an appointment; Reason: Further diagnostic work-up, Recheck today's complaints, Continuance of care. - Problem is new. - Symptoms are resolved. - Notes: Keep hydrated Return to the ED for any further concerns Historical: - Allergies: no known allergies; - Home Meds: 1. Effexor XR 150 mg Oral cp24 1 cap once daily - PMHx: none; - PSHx: Gastric Bypass; hip replacement; - Social history: Smoking status: Patient/guardian denies using No barriers to communication noted, The patient speaks fluent Occitan. - Family history: Pertinent for similar symptoms recently. - : The pt / caregiver states he / she is not on anticoagulants. Home medication list is obtained from the patient. - Exposure Risk Screening:: None identified. 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 6 in. (167.64 cm); Pain 0/10; 12:34 BP 98 / 54 Supine; Pulse 75; Pulse Ox 98% on R/A; kr3 12:34 BP 132 / 71 Sitting; Pulse 78; Pulse Ox 100% on R/A; kr3 12:34 BP 116 / 72 Standing; Pulse 88; Pulse Ox 100% on R/A; kr3 12:49 BP 96 / 60 (auto/); kr3 12:49 Pulse 64 MON; Pulse Ox 100% ; kr3 13:19 BP 101 / 66 (auto/); kr3 13:19 Pulse 76 MON; Pulse Ox 99% ; kr3 13:49 BP 108 / 62 (auto/); kr3 13:49 Pulse 68 MON; Pulse Ox 99% ; kr3 14:19 BP 109 / 62 (auto/); kr3 14:19 Pulse 62 MON; Pulse Ox 99% ; kr3 15:19 BP 100 / 55 (auto/); ld5 15:19 Pulse 68 MON; Pulse Ox 98% ; ld5 15:52 BP 102 / 56; Pulse 66; Resp 16; Temp 97.1; Pulse Ox 98% on R/A; Pain 0/10; ld5 11:45 Body Mass Index 25.82 (72.57 kg, 167.64 cm) ct3 MDM: 11:57 ECG WITH READING ER PHYS+CARDIAG ordered. EDMS 11:59 Orthostatic VS ordered. ml 11:59 IV Saline Lock ordered. ml 12:00 CBC with Diff Ordered. EDMS 12:00 MED Profile Ordered. EDMS 12:00 CIP Ordered. EDMS 12:00 Troponin Ordered. EDMS 12:00 Liver Profile Ordered. EDMS 12:00 FreeT4 with TSH Ordered. EDMS 12:00 HCG,Serum Qualitative Ordered. EDMS 12:46 Chest, 2 View (pa\E\lat) Ordered. EDMS 13:19 NS 0.9% 1000 ml IV at bolus once ordered. le 13:19 Repeat EKG (put time details section) ordered. le 13:19 Redraw CIP &Troponin (put time in details section) ordered. le 13:20 CBC with Diff Reviewed. le 13:20 MED Profile Reviewed. le 13:20 Liver Profile Reviewed. le 13:20 CIP Reviewed. le 13:20 Troponin Reviewed. le 13:20 FreeT4 with TSH Reviewed. le 13:20 HCG,Serum Qualitative Reviewed. le 13:21 REGULAR+DIET ordered. EDMS 14:34 Redraw CIP &Troponin (put time in details section) complete. ar3 14:34 CARDIAC MARKER PANEL Ordered. EDMS 14:35 Repeat EKG (put time details section) complete. ar3 14:35 ECG WITH READING ER PHYS ordered. EDMS 15:13 CARDIAC MARKER PANEL Reviewed. le 15:13 Chest, 2 View (pa\E\lat) Reviewed. le 15:14 Ambulate Patient to Assess Patient Safety ordered. le 15:34 Financial registration complete. gjb 15:59 [facility] Payment Agreement was scanned into [employer] and attached to record. [facility] 10/23 13:47 T-Sheet-- Draft Copy was scanned into MED[employer] and attached to record. gb 13:48 ECG/EKG was scanned into [employer] and attached to record. gb 13:48 Trend VS was scanned into [employer] and attached to record. gb Administered Medications: 10/22 13:32 Drug: NS 0.9% 1000 ml [sodium chloride 0.9 % intravenous solution] Route: IV; Rate: kr3 bolus; Site: right antecubital; 15:42 Follow up: IV Status: Completed infusion; IV Intake: 1000ml ld5 Signatures: Dispatcher [employer] EDMS Jaleesa Chilel MD MD ml Scott, Debra, RN RN dls Mattie Azul, Reg Reg gb Tequila Chavez, PRECISION INSTRUMENT MAKER AND REPAIRER PRECISION INSTRUMENT MAKER AND REPAIRER Simi Sánchez, SVP GROUP DIRECTOR SVP GROUP DIRECTOR ar3 Mdadie Diego RN RN ld5 Mel Rivers [facility] Olivia Isabel RN kr3 The chart was reviewed and I authenticate all verbal orders and agree with the evaluation and treatment provided.Corrections: (The following items were deleted from the chart) 12:56 12:00 Chest, 1 view+XR ordered. EDPR EDMS Attachments: 15:59 [facility] Payment Agreement [facility] 10/23 13:47 T-Sheet-- Draft Copy gb 13:48 ECG/EKG gb Chart Complete MTDD
== END 2016-10-22 15:53 | disposition home or self-care (01) ==
LOC: M ED 11:44
DX: R42 Dizziness and giddiness (principal); R00.2 Palpitations; Z98.84 Bariatric surgery status; Z79.899 Other long term (current) drug therapy

== ENCOUNTER → 2017-01-02 | Outpatient (REF) | payer OTHER ==
[2017-01-02 12:12] LABS: BASO % 0.5 % (0.0-1.0); EOS # 0.2 K/mm3 (0.0-0.50); EOS % 3.2 % (0.0-3.0); LARGE UNSTAINED CELL # 0.1 K/mm3 (0.0-0.4); LARGE UNSTAINED CELL % 1.2 % (0.0-4.0); LYMPH # 1.1 K/mm3 (1.5-4.5); LYMPH % 18.1 % (24.0-44.0); MEAN CORPUSCULAR HEMOGLOBIN 28.3 pg (27.0-33.0); MEAN CORPUSCULAR HGB CONC 32.2 g/dl (32.0-36.5); MEAN CORPUSCULAR VOLUME 87.6 fl (80.0-96.0); MONO # 0.3 K/mm3 (0.0-0.8); MONO % 5.6 % (0.0-5.0); NEUTROPHILS # 4.3 K/mm3 (1.8-7.7); NEUTROPHILS % 71.5 % (36.0-66.0); PLATELET COUNT, AUTOMATED 370 k/mm3 (150-450); RED CELL DISTRIBUTION WIDTH 12.4 % (11.5-14.5)
[2017-01-02 12:24] LABS: ALBUMIN/GLOBULIN RATIO 1.18 (1.00-1.93); ALKALINE PHOSPHATASE 70 U/L (45-117); ALT/SGPT 47 U/L (12-78); ANION GAP 8 MEQ/L (8-16); AST/SGOT 20 U/L (15-37); BILIRUBIN,TOTAL 0.4 MG/DL (0.2-1.0); BLOOD UREA NITROGEN 14 MG/DL (7-18); CALCIUM LEVEL 8.7 MG/DL (8.5-10.1); CARBON DIOXIDE LEVEL 30 MEQ/L (21-32); CHLORIDE LEVEL 101 MEQ/L (98-107); CHOLESTEROL LEVEL 234 MG/DL (<200); CREATININE FOR GFR 0.82 MG/DL (0.55-1.02); GLOMERULAR FILTRATION RATE > 60.0 (>58); GLUCOSE, FASTING 85 MG/DL (70-105); POTASSIUM SERUM 4.2 MEQ/L (3.5-5.1); SODIUM LEVEL 139 MEQ/L (136-145); TOTAL IRON BINDING CAPACITY 438 UG/DL (250-450); TOTAL PROTEIN 7.4 GM/DL (6.4-8.2); TRIGLYCERIDES LEVEL 84 MG/DL (<150)
[2017-01-02 13:05] LABS: FOLATE > 24.0 NG/ML; VITAMIN B12 LEVEL 1003 PG/ML
== END ==
LOC: M LABDRAW1 11:44
PROVIDERS: ATTEND Emergency Medicine
DX: Z98.84 Bariatric surgery status (principal)

== ENCOUNTER → 2017-02-25 | Outpatient (REF) | payer OTHER ==
[2017-02-25 18:31] LABS: BASO % 0.5 % (0.0-1.0); EOS # 0.4 K/mm3 (0.0-0.50); EOS % 4.5 % (0.0-3.0); LARGE UNSTAINED CELL # 0.1 K/mm3 (0.0-0.4); LARGE UNSTAINED CELL % 1.1 % (0.0-4.0); LYMPH # 1.2 K/mm3 (1.5-4.5); LYMPH % 14.1 % (24.0-44.0); MEAN CORPUSCULAR HEMOGLOBIN 28.6 pg (27.0-33.0); MEAN CORPUSCULAR HGB CONC 32.3 g/dl (32.0-36.5); MEAN CORPUSCULAR VOLUME 88.4 fl (80.0-96.0); MONO # 0.3 K/mm3 (0.0-0.8); MONO % 3.4 % (0.0-5.0); NEUTROPHILS # 6.7 K/mm3 (1.8-7.7); NEUTROPHILS % 76.5 % (36.0-66.0); PLATELET COUNT, AUTOMATED 425 k/mm3 (150-450); WHITE BLOOD COUNT 8.8 K/mm3 (4.0-10.0)
[2017-02-25 19:25] LABS: ERYTHROCYTE SEDIMENTATION RATE 40 mm/hr (0-20)
== END ==
LOC: M LABDRAW1 17:31
PROVIDERS: ATTEND Orthopaedic Surgery
DX: M25.552 Pain in left hip (principal)

== ENCOUNTER → 2017-02-28 | Outpatient (CLI) | payer OTHER ==
[~2017-02-28] MED LIST changes: +CONRAY-43 43% 50ML VIAL (Q9960) As Ordered ONE; +LIDOCAINE 1% MDV 20ML VIAL As Ordered ONE; +TRIAMCINOLONE ACETONIDE SUSP 40 MG/ML VIAL (J3301) As Ordered ONE
--- NOTE | 2017-02-28 16:38 | REP ---
FLUORO GUIDANCE FOR LEFT ILIOPSOAS INJECTION: The risks and benefits of the procedure were explained to the patient and informed consent was obtained. The left lesser trochanter was localized using fluoroscopic guidance. The skin was prepped and draped in a sterile fashion. 1% lidocaine was used as a local anesthetic. Using fluoroscopic guidance, a 22-gauge spinal needle was inserted and advanced to the lesser trochanter. 3 mL of a solution containing 2 mL of 1% lidocaine and 1 mL of Kenalog 40 mg was injected. The needle was then removed. The patient tolerated the procedure well and there were no immediate complications. 16 seconds of fluoroscopy time was utilized for this procedure.
== END ==
LOC: M RADPRO 10:33
PROVIDERS: ATTEND Orthopaedic Surgery
DX: M25.552 Pain in left hip (principal)
CPT/HCPCS: 20610; 77002; J3301; Q9960

== ENCOUNTER → 2017-04-04 | Outpatient (CLI) | payer OTHER ==
[~2017-04-04] MED LIST changes: -COUM2.5T11 PO; +COUM2.5T17 PO; +PERC5TAB12 PO; -PERC5TAB6 PO
--- NOTE | 2017-04-04 14:59 | REP ---
FLUOROSCOPIC GUIDANCE FOR LEFT ILIOPSOAS INJECTION: The procedure was performed under the direct supervision of Dr. Johnson. The risks and benefits of the procedure were explained to the patient and informed consent was obtained. The left lesser trochanter was localized using fluoroscopic guidance. The skin was prepped and draped in a sterile fashion. 1% lidocaine was used as a local anesthetic. Using fluoroscopic guidance a 22 gauge spinal needle was inserted and advanced to the lesser trochanter. 3 mL of a solution containing 2 mL of 1% lidocaine and 1 mL of Kenalog 40 mg was injected. The needle was then removed. The patient tolerated the procedure well and there were no immediate complications. 5 seconds of fluoroscopy time was utilized for this procedure. Reviewed by ROBERT Barakat 04/04/2017 04:07 PEdited and Signed by Ramiro Johnson MD 04/04/2017 05:43 P
== END ==
LOC: M RADPRO 09:00
PROVIDERS: ATTEND Orthopaedic Surgery
DX: M25.552 Pain in left hip (principal)
CPT/HCPCS: 20610; 77002; J3301; Q9960

== ENCOUNTER → 2017-05-06 | Outpatient (REF) | payer OTHER ==
[~2017-05-06] MED LIST changes: -CONRAY-43 43% 50ML VIAL (Q9960) As Ordered ONE; -LIDOCAINE 1% MDV 20ML VIAL As Ordered ONE; -TRIAMCINOLONE ACETONIDE SUSP 40 MG/ML VIAL (J3301) As Ordered ONE
[2017-05-06 19:02] LABS: GLOMERULAR FILTRATION RATE > 60.0 (>58)
[2017-05-06 20:11] LABS: MEAN CORPUSCULAR HEMOGLOBIN 28.9 pg (27.0-33.0); MEAN CORPUSCULAR VOLUME 87.5 fl (80.0-96.0); RED CELL DISTRIBUTION WIDTH 13.2 % (11.5-14.5); WHITE BLOOD COUNT 7.1 K/mm3 (4.0-10.0)
[2017-05-06 20:38] LABS: ERYTHROCYTE SEDIMENTATION RATE 20 mm/hr (0-20)
[2017-05-06 20:45] LABS: BANDS 1 % (< 11); EOSINOPHILS 3 % (0-5)
== END ==
LOC: M LABDRAW1 15:14
PROVIDERS: ATTEND Orthopaedic Surgery
DX: Z96.642 Presence of left artificial hip joint (principal)

== ENCOUNTER → 2017-05-08 | Outpatient (CLI) | payer OTHER ==
--- NOTE | 2017-05-08 13:54 | REP ---
Three-phase bone scan of the hips: History: Artificial left hip. Left hip pain. Comparison radiographs are from July 14, 2015. Technique: 21.3 mCi technetium 99m MDP is injected and standard three-phase imaging was acquired. Findings: Anterior and posterior flow study is normal. Blood pool images show no area of regional hyperemia in the pelvis or hip or proximal thigh region. Delayed scan images demonstrate expected photopenia from the left hip arthroplasty components. There is no focus of increased uptake to suggest loosening or infection. There is mild arthritic uptake in the right hip. Impression: Status post left hip arthroplasty with expected scintigraphic findings. No scintigraphic evidence to suggest loosening or infection. Signed by Guy Bailon MD 05/08/2017 05:02 P
== END ==
LOC: M RAD 09:52
PROVIDERS: ATTEND Orthopaedic Surgery
DX: Z96.642 Presence of left artificial hip joint (principal)
CPT/HCPCS: 78315; A9503

== ENCOUNTER → 2018-07-17 | Outpatient (REF) | payer OTHER ==
[2018-07-17 12:33] LABS: ALBUMIN/GLOBULIN RATIO 1.18 (1.00-1.93); ALKALINE PHOSPHATASE 84 U/L (45-117); ALT/SGPT 45 U/L (12-78); ANION GAP 5 MEQ/L (8-16); AST/SGOT 28 U/L (7-37); BILIRUBIN,TOTAL 0.3 MG/DL (0.2-1.0); BLOOD UREA NITROGEN 14 MG/DL (7-18); CALCIUM LEVEL 9.4 MG/DL (8.5-10.1); CARBON DIOXIDE LEVEL 31 MEQ/L (21-32); CHLORIDE LEVEL 103 MEQ/L (98-107); CHOLESTEROL LEVEL 252 MG/DL (<200); CHOLESTEROL RISK RATIO 3.036 (<5); CREATININE FOR GFR 0.75 MG/DL (0.55-1.30); FERRITIN 6 NG/ML (8-252); FOLATE > 24.0 NG/ML; FREE T4 0.88 NG/DL (0.76-1.46); GLOMERULAR FILTRATION RATE > 60.0 (>58); GLUCOSE, FASTING 81 MG/DL (70-100); HDL CHOLESTEROL 83 MG/DL (>40); IRON (FE) 57 UG/DL (50-170); LDL CHOLESTEROL 152 MG/DL (<100); MAGNESIUM LEVEL 2.2 MG/DL (1.8-2.4); NON-HDL-C 169 MG/DL; PERCENT SATURATION 13.7 % (13.2-45.0); SODIUM LEVEL 139 MEQ/L (136-145); TOTAL IRON BINDING CAPACITY 417 UG/DL (250-450); TOTAL PROTEIN 7.4 GM/DL (6.4-8.2); TRIGLYCERIDES LEVEL 83 MG/DL (<150); VITAMIN B12 LEVEL 1901 PG/ML
== END ==
LOC: M LABDRAW1 09:35
DX: Z98.84 Bariatric surgery status (principal)

== ENCOUNTER → 2019-06-26 | Outpatient (REF) | payer OTHER ==
[~2019-06-26] MED LIST changes: +AUGM875T28 PO; -EFFE150C PO; +EFFE150C2 PO
[2019-06-26 18:58] LABS: C REACTIVE PROTEIN QUANTITATIV < 0.30 MG/DL (0.00-0.30); RHEUMATOID FACTOR QUANT < 10.0 IU/ML (<15.0); URIC ACID 3.9 MG/DL (2.6-6.0)
[2019-06-26 19:00] LABS: BASO # 0.1 10^3/uL (0.0-0.2); BASO % 0.6 % (0.0-1.0); EOS # 0.2 10^3/uL (0.0-0.5); EOS % 2.5 % (0.0-3.0); HEMATOCRIT 34.2 % (36.0-47.0); HEMOGLOBIN 10.9 g/dl (12.0-15.5); LYMPH # 1.9 10^3/uL (1.5-5.0); LYMPH % 22.8 % (24.0-44.0); MEAN CORPUSCULAR HEMOGLOBIN 27.6 pg (27.0-33.0); MEAN CORPUSCULAR HGB CONC 31.9 g/dl (32.0-36.5); MEAN CORPUSCULAR VOLUME 86.6 fl (80.0-96.0); MONO # 0.4 10^3/uL (0.0-0.8); NEUTROPHILS # 5.7 10^3/uL (1.5-8.5); PLATELET COUNT, AUTOMATED 340 10^3/uL (150-450); RED BLOOD COUNT 3.95 10^6/uL (4.00-5.40); WHITE BLOOD COUNT 8.3 10^3/uL (4.0-10.0)
[2019-06-26 19:35] LABS: ERYTHROCYTE SEDIMENTATION RATE 23 mm/hr (0-20)
[2019-07-02 14:11] LABS: ANTINUCLEAR ANTIBODIES DIRECT Negative (Negative); HLA-B27 Negative (.); Lyme Disease IgG/IgM Antibodie <0.91 ISR (0.00-0.90); Lyme Disease IgM Ab Quantitati <0.80 index (0.00-0.79)
== END ==
LOC: M LABDRAW1 16:39
PROVIDERS: ATTEND Orthopaedic Surgery
DX: M79.10 Myalgia, unspecified site (principal)

== ENCOUNTER → 2019-07-17 | Outpatient (REF) | payer OTHER ==
[2019-07-17 14:16] LABS: ALT/SGPT 53 U/L (12-78); BASO % 0.7 % (0.0-1.0); BLOOD UREA NITROGEN 14 MG/DL (7-18); CALCIUM LEVEL 9.1 MG/DL (8.5-10.1); CARBON DIOXIDE LEVEL 30 MEQ/L (21-32); CHLORIDE LEVEL 108 MEQ/L (98-107); CREATININE FOR GFR 0.77 MG/DL (0.55-1.30); EOS # 0.1 10^3/uL (0.0-0.5); GLOMERULAR FILTRATION RATE > 60.0 (>58); GLUCOSE, FASTING 82 MG/DL (70-100); HEMATOCRIT 35.5 % (36.0-47.0); HEMOGLOBIN 11.3 g/dl (12.0-15.5); LYMPH # 1.4 10^3/uL (1.5-5.0); LYMPH % 24.5 % (24.0-44.0); MEAN CORPUSCULAR HEMOGLOBIN 27.4 pg (27.0-33.0); MEAN CORPUSCULAR HGB CONC 31.8 g/dl (32.0-36.5); MONO # 0.4 10^3/uL (0.0-0.8); MONO % 6.8 % (0.0-5.0); NEUTROPHILS # 3.9 10^3/uL (1.5-8.5); NEUTROPHILS % 65.8 % (36.0-66.0); PLATELET COUNT, AUTOMATED 343 10^3/uL (150-450); POTASSIUM SERUM 4.3 MEQ/L (3.5-5.1); RED BLOOD COUNT 4.13 10^6/uL (4.00-5.40); SODIUM LEVEL 141 MEQ/L (136-145); WHITE BLOOD COUNT 5.9 10^3/uL (4.0-10.0)
[2019-07-17 14:17] LABS: ALBUMIN 3.8 GM/DL (3.2-5.2); BILIRUBIN,TOTAL 0.2 MG/DL (0.2-1.0); CHOLESTEROL LEVEL 250 MG/DL (<200); CHOLESTEROL RISK RATIO 3.125 (<5); HDL CHOLESTEROL 80 MG/DL (>40); IRON (FE) 41 UG/DL (50-170); LDL CHOLESTEROL 146 MG/DL (<100); NON-HDL-C 170 MG/DL; PERCENT SATURATION 9.2 % (13.2-45.0); TOTAL IRON BINDING CAPACITY 448 UG/DL (250-450); TOTAL PROTEIN 7.3 GM/DL (6.4-8.2); TRIGLYCERIDES LEVEL 122 MG/DL (<150)
[2019-07-17 14:23] LABS: FOLATE > 24.0 NG/ML; VITAMIN B12 LEVEL 1339 PG/ML
== END ==
LOC: M LABDRAW1 13:44
PROVIDERS: ATTEND Physician Assistant
DX: Z00.00 Encounter for general adult medical examination without abnormal findings (principal); D64.9 Anemia, unspecified

== ENCOUNTER 2019-10-14 07:00 | Day surgery (SDC) | payer OTHER ==
[~2019-10-14] VITALS: Ht 167.6 cm; Wt 74.4 kg
[~2019-10-14 07:00] MED LIST changes: +B-12100T2 PO; +CALC-176 PO; +CVS1CAP2 PO; +FERR325T3 PO; +LORA-674 PO; +MULTCAP PO; +NS 1,000 ML IV ONE; +VITA50005 PO
[2019-10-14] MEDS ORDERED: LIDOCAINE 2% INJ 100 MG/5 ML SDV (FOR ANES.) As Ordered ONE (07:11)
[2019-10-14] MEDS ORDERED: propofoL 200 MG/20 ML VIAL As Ordered ONE ×2 (07:11→08:22)
[2019-10-14] MEDS ORDERED: PHENYLephrine HCL 500 MCG/5 ML (100MCG/ML) SYRINGE (J2370) As Ordered ONE (08:13)
[2019-10-14] MEDS ORDERED: ePHEDrine SULFATE 25 MG/5 ML(5MG/ML) SYRINGE As Ordered ONE (08:22)
--- NOTE | 2019-10-14 08:33 | ROOR ---
Patient Name: Na De Jesus Procedure Date: 10/14/2019 8:03 AM Date of : 1970 Age: 49 Room: [facility] Gender: Female Note Status: Finalized Procedure: Colonoscopy Indications: Screening for colorectal malignant neoplasm Providers: DO Zully Ricci MD: Angelina Dunn MD Requesting Provider: Medicines: Propofol per Anesthesia Complications: No immediate complications. Procedure: Pre-Anesthesia Assessment: - Prior to the procedure, a History and Physical was performed, and patient medications and allergies were reviewed. The patient is competent. The risks and benefits of the procedure and the sedation options and risks were discussed with the patient. All questions were answered and informed consent was obtained. Patient identification and proposed procedure were verified by the physician, the nurse, the bowling floor manager and the traffic engineering technician in the endoscopy suite. Mental Status Examination: alert and oriented. Airway Examination: normal oropharyngeal airway and neck mobility. Respiratory Examination: clear to auscultation. CV Examination: normal. Prophylactic Antibiotics: The patient does not require prophylactic antibiotics. Prior Anticoagulants: The patient has taken no previous anticoagulant or antiplatelet agents. ASA Grade Assessment: II - A patient with mild systemic disease. After reviewing the risks and benefits, the patient was deemed in satisfactory condition to undergo the procedure. The anesthesia plan was to use monitored anesthesia care (MAC). Immediately prior to administration of medications, the patient was re-assessed for adequacy to receive sedatives. The heart rate, respiratory rate, oxygen saturations, blood pressure, adequacy of pulmonary ventilation, and response to care were monitored throughout the procedure. The physical status of the patient was re-assessed after the procedure. The Colonoscope was introduced through the anus and advanced to the cecum, identified by appendiceal orifice and ileocecal valve. The colonoscopy was performed without difficulty. The patient tolerated the procedure well. Findings: Non-bleeding internal hemorrhoids were found during retroflexion. The hemorrhoids were small and Grade I (internal hemorrhoids that do not prolapse). Estimated blood loss: none. The exam was otherwise without abnormality on direct and retroflexion views. Impression: - Non-bleeding internal hemorrhoids. - The examination was otherwise normal on direct and retroflexion views. - No specimens collected. Recommendation: - Patient has a contact number available for emergencies. The signs and symptoms of potential delayed complications were discussed with the patient. Return to normal activities tomorrow. Written discharge instructions were provided to the patient. - Repeat colonoscopy in 5-10 years for screening purposes. - Return to my office PRN. Ramiro Sparks DO 10/14/2019 8:32:33 AM Electronically signed by Ramiro Sparks DO Number of Addenda: 0 Note Initiated On: 10/14/2019 8:03 AM Estimated Blood Loss: Estimated blood loss: none.
[2019-10-14 09:05] VITALS: BP 126/70
== END 2019-10-14 09:20 | disposition home or self-care (01) ==
LOC: M OPP 07:00
PROVIDERS: ATTEND Surgery
DX: Z12.11 Encounter for screening for malignant neoplasm of colon (principal); K64.0 First degree hemorrhoids; Z98.84 Bariatric surgery status; Z79.899 Other long term (current) drug therapy; Z91.040 Latex allergy status; Z91.048 Other nonmedicinal substance allergy status
CPT/HCPCS: 45378; J2370

== ENCOUNTER → 2019-10-15 | Outpatient (REF) | payer OTHER ==
[~2019-10-15] MED LIST changes: -NS 1,000 ML IV ONE
[2019-10-15 14:29] LABS: FERRITIN 10 NG/ML (8-252); FREE T4 1.07 NG/DL (0.76-1.46); IRON (FE) 113 UG/DL (50-170); THYROID STIMULATING HORMONE 0.968 uIU/ML (0.358-3.740)
[2019-10-16 11:46] LABS: THYROID PEROXIDASE ANTIBODY < 28.0 U/ML (<60.0)
[2019-10-16 13:09] LABS: TOTAL 25(OH) VITAMIN D 69.4 NG/ML (30.0-100.0)
== END ==
LOC: M SFHCRHEU 10:46
PROVIDERS: ATTEND Internal Medicine
DX: M25.50 Pain in unspecified joint (principal)

== ENCOUNTER → 2019-10-27 | Outpatient (REF) | payer OTHER | LOC: M LAB REF 16:37 | PROVIDERS: ATTEND Nurse Practitioner Family | DX: J02.9 Acute pharyngitis, unspecified (principal) ==

== ENCOUNTER → 2019-11-09 | Outpatient (CLI) | payer OTHER ==
[2019-11-09 18:53] LABS: C REACTIVE PROTEIN QUANTITATIV < 0.30 MG/DL (0.00-0.30); FERRITIN 10 NG/ML (8-252); IRON (FE) 86 UG/DL (50-170); THYROID PEROXIDASE ANTIBODY < 28.0 U/ML (<60.0); THYROID STIMULATING HORMONE 0.841 uIU/ML (0.358-3.740)
--- NOTE | 2019-11-09 19:56 | REP ---
Bilateral hand series: Eight views total. History: Polyarthralgia. Findings: Four views of the left hand demonstrate overall normal mineralization. Joint spaces are preserved. No erosive change is appreciated. No osteophyte formation is seen. Four views of the right hand demonstrate overall normal mineralization as well. Joint spaces are preserved. No erosive changes are noted. Impression: Negative radiographs of the hands bilaterally. Electronically Signed by Guy Bailon MD 11/09/2019 08:12 P
--- NOTE | 2019-11-09 19:57 | REP ---
Bilateral wrist series: Eight views. History: Polyarthralgia. Findings: Four views of each wrist demonstrate normal bones, joints, and soft tissues. No evidence of arthropathy seen. Impression: Negative radiographs of the wrists bilaterally. Unreviewed
--- NOTE | 2019-11-09 19:58 | REP ---
Bilateral shoulder series: Six views. History: Polyarthralgia. Findings: Three views of each shoulder demonstrate mild hypertrophy of the acromioclavicular joints bilaterally. AC and glenohumeral joints are symmetrically aligned. No erosive changes are seen. Humeral head is smooth and rounded. Periarticular soft tissues are unremarkable. Impression: Mild AC joint hypertrophy bilaterally. Otherwise negative. Electronically Signed by Guy Bailon MD 11/09/2019 08:14 P
== END ==
LOC: M LAB 17:24
PROVIDERS: ATTEND Internal Medicine
DX: M25.50 Pain in unspecified joint (principal)

== ENCOUNTER → 2020-08-01 | Outpatient (CLI) | payer SELFPAY | LOC: M LABSMTC 11:35 | PROVIDERS: ATTEND Pediatrics | DX: Z20.828 Contact with and (suspected) exposure to other viral communicable diseases (principal) ==

== ENCOUNTER → 2020-08-24 | Outpatient (CLI) | payer OTHER ==
[2020-08-24 18:19] LABS: BASO # 0.1 10^3/uL (0.0-0.2); BASO % 0.6 % (0.0-1.0); EOS # 0.1 10^3/uL (0.0-0.5); EOS % 1.2 % (0.0-3.0); HEMATOCRIT 38.2 % (36.0-47.0); HEMOGLOBIN 12.4 g/dl (12.0-15.5); LYMPH % 24.8 % (24.0-44.0); MEAN CORPUSCULAR HEMOGLOBIN 28.7 pg (27.0-33.0); MEAN CORPUSCULAR HGB CONC 32.5 g/dl (32.0-36.5); MEAN CORPUSCULAR VOLUME 88.4 fl (80.0-96.0); MONO # 0.7 10^3/uL (0.0-0.8); NEUTROPHILS # 5.3 10^3/uL (1.5-8.5); NEUTROPHILS % 65.2 % (36.0-66.0); PLATELET COUNT, AUTOMATED 368 10^3/uL (150-450); RED BLOOD COUNT 4.32 10^6/uL (4.00-5.40); WHITE BLOOD COUNT 8.2 10^3/uL (4.0-10.0)
[2020-08-24 18:44] LABS: ERYTHROCYTE SEDIMENTATION RATE 17 mm/hr (0-30)
== END ==
LOC: M LAB 08-23 17:17
PROVIDERS: ATTEND Orthopaedic Surgery
DX: M25.552 Pain in left hip (principal); Z98.84 Bariatric surgery status; Z96.642 Presence of left artificial hip joint

== ENCOUNTER → 2021-01-24 | Outpatient (CLI) | payer OTHER ==
[2021-01-24 15:09] LABS: BASO # 0.1 10^3/uL (0.0-0.2); BASO % 0.6 % (0.0-1.0); EOS # 0.2 10^3/uL (0.0-0.5); EOS % 1.8 % (0.0-3.0); HEMATOCRIT 38.8 % (36.0-47.0); HEMOGLOBIN 12.3 g/dl (12.0-15.5); LYMPH # 1.6 10^3/uL (1.5-5.0); LYMPH % 19.4 % (24.0-44.0); MEAN CORPUSCULAR HEMOGLOBIN 28.6 pg (27.0-33.0); MEAN CORPUSCULAR HGB CONC 31.7 g/dl (32.0-36.5); MEAN CORPUSCULAR VOLUME 90.2 fl (80.0-96.0); MONO # 0.6 10^3/uL (0.0-0.8); MONO % 6.9 % (2.0-8.0); NEUTROPHILS # 5.9 10^3/uL (1.5-8.5); NEUTROPHILS % 71.1 % (36.0-66.0); PLATELET COUNT, AUTOMATED 336 10^3/uL (150-450); WHITE BLOOD COUNT 8.3 10^3/uL (4.0-10.0)
[2021-01-24 15:43] LABS: ALT/SGPT 48 U/L (12-78); BILIRUBIN,TOTAL 0.3 MG/DL (0.2-1.0); BLOOD UREA NITROGEN 8 MG/DL (7-18); CALCIUM LEVEL 8.6 MG/DL (8.5-10.1); CARBON DIOXIDE LEVEL 31 MEQ/L (21-32); CHLORIDE LEVEL 104 MEQ/L (98-107); CHOLESTEROL LEVEL 225 MG/DL (<200); CHOLESTEROL RISK RATIO 2.616 (<5); CREATININE FOR GFR 0.63 MG/DL (0.55-1.30); FERRITIN 16 NG/ML (8-252); GLOMERULAR FILTRATION RATE > 60.0 (>51); GLUCOSE, FASTING 56 MG/DL (70-100); HDL CHOLESTEROL 86 MG/DL (>40); IRON (FE) 105 UG/DL (50-170); LDL CHOLESTEROL 112 MG/DL (<100); NON-HDL-C 139 MG/DL; PERCENT SATURATION 29.6 % (13.2-45.0); POTASSIUM SERUM 3.9 MEQ/L (3.5-5.1); SODIUM LEVEL 141 MEQ/L (136-145); TOTAL IRON BINDING CAPACITY 355 UG/DL (250-450); TOTAL PROTEIN 7.3 GM/DL (6.4-8.2); TRIGLYCERIDES LEVEL 135 MG/DL (<150)
[2021-01-24 15:46] LABS: TOTAL 25(OH) VITAMIN D 73.7 NG/ML (30.0-100.0)
[2021-01-24 15:47] LABS: FOLATE > 24.0 NG/ML; VITAMIN B12 LEVEL 847 PG/ML
== END ==
LOC: M PLALAB 14:00
PROVIDERS: ATTEND Nurse Practitioner Family
DX: N23 Unspecified renal colic (principal); Z98.84 Bariatric surgery status

== ENCOUNTER → 2021-02-02 | Outpatient (CLI) | payer OTHER ==
--- NOTE | 2021-02-02 09:00 | REPMRS ---
Patient History The patient states she has not had a clinical breast exam in over a year. Patient is postmenopausal, has history of melanoma at age 46, and is nulliparous. Family history of breast cancer at age 50 or over in maternal grandmother, unknown cancer at age 60 in paternal grandmother, colorectal cancer at age 50 or over in maternal grandfather. Implants in both breasts, 2012. Patient states no breast complaints. Patient has signed the MRS history sheet. Digital Woman Screen Mammo: February 02, 2021 - Exam #: [id number] Bilateral CC and MLO view(s) were taken. Technologist: Ginette Beasley, Technologist Prior study comparison: January 11, 2012, digital woman screen mammo performed at [facility]. May 17, 2010, bilateral bilat screen digital mammo performed at [facility]. FINDINGS: There are scattered fibroglandular densities. The visualized implant margins are smooth. Breast parenchymal density pattern is essentially symmetric. No dominant mass, grouped microcalcification, or architectural distortion is evident on either side. 3-D tomosynthesis shows no additional findings. No significant changes when compared with prior studies. Assessment: BI-RADS/ACR category 2 mammogram. Benign Findings. Recommendation Routine screening mammogram of both breasts in 1 year (for women over age 40). This patient's [facility] Lifetime Breast Cancer RIsk is estimated at 15.8 %. This mammogram was interpreted with the aid of an FDA-approved computer-aided dectection system. Electronically Signed By: Rolf Bailon MD 02/02/21 [id number]
== END ==
LOC: M WHC 06:59
PROVIDERS: ATTEND Nurse Practitioner Family
DX: Z12.31 Encounter for screening mammogram for malignant neoplasm of breast (principal); Z78.0 Asymptomatic menopausal state; Z85.820 Personal history of malignant melanoma of skin; Z80.3 Family history of malignant neoplasm of breast; Z80.8 Family history of malignant neoplasm of other organs or systems

== ENCOUNTER → 2021-06-08 | Outpatient (CLI) | payer OTHER ==
[~2021-06-08] MED LIST changes: +ERGO500029 PO; -VITA50005 PO
== END ==
LOC: M PLALAB 13:06
PROVIDERS: ATTEND Orthopaedic Surgery
DX: T56.2X1A Toxic effect of chromium and its compounds, accidental (unintentional), initial encounter (principal)

== ENCOUNTER 2021-07-12 09:26 | Outpatient (CLI) | payer OTHER ==
[~2021-07-12] VITALS: Ht 167.6 cm; Wt 74.0 kg
[~2021-07-12 09:26] MED LIST changes: +ALBUTEROL 90 MCG/ACT 8GM HFA INHALER INH PRN; +ALBUTEROL SULFATE 2.5 MG/0.5 ML INH NEB SOLN INH PRN; +EPINEPHrine INJ 1 MG/ML 1ML AMP IM PRN; +NS 1,000 ML IV SCH; +diphenhydrAMINE 50MG/ML VIAL (J1200) IV PRN; +methylPREDNISolone 125MG 2ML VIAL IV PRN
[2021-07-12] MEDS ORDERED: CASIRIVIMAB/IMDEVIMAB 1,200 MG in NS 250 ML IV ONE (09:30)
[2021-07-12 10:01] VITALS: BP 122/77
[2021-07-12 10:31] VITALS: BP 133/69
[2021-07-12 11:01] VITALS: BP 118/60
[2021-07-12] MEDS ORDERED: ACETAMINOPHEN TAB 650MG DOSE (2X325MG) PO ONE (11:15)
[2021-07-12 12:01] VITALS: BP 114/73
== END 2021-07-12 12:01 | disposition home or self-care (01) ==
LOC: M OPCLI4PR 09:26
PROVIDERS: ATTEND Family Medicine
DX: U07.1 COVID-19 (principal); Z91.040 Latex allergy status

== ENCOUNTER → 2021-08-16 | Outpatient (CLI) | payer OTHER ==
[~2021-08-16] MED LIST changes: -ALBUTEROL 90 MCG/ACT 8GM HFA INHALER INH PRN; -ALBUTEROL SULFATE 2.5 MG/0.5 ML INH NEB SOLN INH PRN; -EPINEPHrine INJ 1 MG/ML 1ML AMP IM PRN; +ISOVUE-370 76% 100ML VIAL As Ordered ONE; -NS 1,000 ML IV SCH; -diphenhydrAMINE 50MG/ML VIAL (J1200) IV PRN; -methylPREDNISolone 125MG 2ML VIAL IV PRN
--- NOTE | 2021-08-16 08:44 | REP ---
INDICATION: LUNG NODULE. COMPARISON: CT chest with contrast, 01/16/2018. TECHNIQUE: Imaging protocol: Computed tomography of the chest with IV contrast. Contiguous 3 mm thick axial projection images were obtained through the chest. 2D sagittal and coronal reconstructions were performed. Radiation optimization: All CT scans at this facility use at least one of these dose optimization techniques: automated exposure control; mA and/or kV adjustment per patient size (includes targeted exams where dose is matched to clinical indication); or iterative reconstruction. CONTRAST: 75 cc Isovue 370 intravenous FINDINGS: Lower neck: The thyroid gland is normal. There is no supraclavicular lymphadenopathy. Mediastinum: There are reactive mediastinal and right hilar lymph nodes. There are benign calcified subcarinal and azygous lymph nodes. Heart/thoracic aorta/pulmonary arterial tree: The heart size is normal. There is no pericardial effusion. The thoracic aorta is normal. There is no evidence of thoracic aortic aneurysm or aortic dissection. Pulmonary arteries are suboptimally opacified but no filling defects are identified. Upper abdomen: Status post gastric bypass surgery. Thoracic esophagus: There is a small hiatal hernia. Chest wall and axilla: There are bilateral retropectoral breast prostheses. The soft tissues of the chest wall are otherwise unremarkable. There is no axillary lymphadenopathy. There are no significant bony abnormalities of the chest. Lung parenchyma: There are stable peripheral soft tissue density nodules in the lower lobe of the right lung, some of which are at least partially calcified, consistent with granulomas. (Image 72, 75, 79). There is a stable benign calcified granuloma in the lateral basal segment of the lower lobe of the left lung (image 79). There are no new pulmonary nodules or masses. The lungs are otherwise clear. No significant interstitial or alveolar lung disease. There are no pleural effusions. IMPRESSION: 1. There are no new pulmonary nodules or masses. The pulmonary nodules seen in the lower lobes of both lungs are stable x3 years and no further follow-up of these nodules is indicated. 2. There is no significant lung disease. 3. Status post gastric bypass surgery. 4. There is a small hiatal hernia. 5. Other findings as noted. <Electronically signed by Uche Chance > 08/16/21 [id number]
== END ==
LOC: M RAD 07:44
PROVIDERS: ATTEND Nurse Practitioner Family
DX: R91.1 Solitary pulmonary nodule (principal)
CPT/HCPCS: 71260; Q9967

== ENCOUNTER → 2021-09-26 | Outpatient (CLI) | payer OTHER ==
[~2021-09-26] MED LIST changes: -ISOVUE-370 76% 100ML VIAL As Ordered ONE
[2021-09-26 15:36] LABS: PLATELET COUNT, AUTOMATED 346 10^3/uL (150-450)
[2021-09-26 15:47] LABS: INR 0.92; PROTHROMBIN TIME 12.8 SECONDS (12.7-14.5)
[2021-09-26 15:48] LABS: PARTIAL THROMBOPLASTIN TIME 29.7 SECONDS (25.9-37.0)
[2021-09-26 16:14] LABS: COLLAGEN EPINEPHRINE 98 SECONDS (74-162)
== END ==
LOC: M PLALAB 13:03
PROVIDERS: ATTEND Physical Medicine & Rehabilitation
DX: M51.36 Other intervertebral disc degeneration, lumbar region (principal)

== ENCOUNTER → 2021-11-23 | Outpatient (CLI) | payer OTHER ==
[2021-11-23 11:23] LABS: BASO % 0.6 % (0.0-1.0); EOS # 0.3 10^3/uL (0.0-0.5); EOS % 4.7 % (0.0-3.0); HEMATOCRIT 38.8 % (36.0-47.0); HEMOGLOBIN 12.5 g/dl (12.0-15.5); LYMPH # 1.9 10^3/uL (1.5-5.0); LYMPH % 27.3 % (24.0-44.0); MEAN CORPUSCULAR HEMOGLOBIN 28.2 pg (27.0-33.0); MEAN CORPUSCULAR HGB CONC 32.2 g/dl (32.0-36.5); MEAN CORPUSCULAR VOLUME 87.4 fl (80.0-96.0); MONO # 0.5 10^3/uL (0.0-0.8); MONO % 6.6 % (2.0-8.0); NEUTROPHILS # 4.2 10^3/uL (1.5-8.5); NEUTROPHILS % 60.4 % (36.0-66.0); PLATELET COUNT, AUTOMATED 352 10^3/uL (150-450); RED BLOOD COUNT 4.44 10^6/uL (4.00-5.40)
[2021-11-23 14:06] LABS: ALT/SGPT 63 U/L (12-78); BILIRUBIN,TOTAL 0.2 MG/DL (0.2-1.0); BLOOD UREA NITROGEN 12 MG/DL (7-18); CALCIUM LEVEL 9.5 MG/DL (8.5-10.1); CARBON DIOXIDE LEVEL 33 MEQ/L (21-32); CHLORIDE LEVEL 107 MEQ/L (98-107); CREATININE FOR GFR 0.77 MG/DL (0.55-1.30); FERRITIN 10 NG/ML (8-252); FREE T4 0.79 NG/DL (0.76-1.46); GLOMERULAR FILTRATION RATE > 60.0 (>51); GLUCOSE, FASTING 80 MG/DL (70-100); IRON (FE) 55 UG/DL (50-170); POTASSIUM SERUM 4.8 MEQ/L (3.5-5.1); SODIUM LEVEL 142 MEQ/L (136-145); TOTAL IRON BINDING CAPACITY 422 UG/DL (250-450); TOTAL PROTEIN 7.1 GM/DL (6.4-8.2)
[2021-11-23 14:08] LABS: FOLATE > 24.0 NG/ML; VITAMIN B12 LEVEL 566 PG/ML
[2021-11-23 15:30] LABS: TOTAL 25(OH) VITAMIN D 45.5 NG/ML (30.0-100.0)
== END ==
LOC: M PLALAB 07:56
PROVIDERS: ATTEND Nurse Practitioner Family
DX: Z98.84 Bariatric surgery status (principal); R63.5 Abnormal weight gain

== ENCOUNTER → 2021-12-12 | Outpatient (CLI) | payer OTHER | LOC: M RAD 11:17 | PROVIDERS: ATTEND Physical Medicine & Rehabilitation | DX: M25.552 Pain in left hip (principal); Z96.642 Presence of left artificial hip joint ==

== ENCOUNTER → 2022-03-21 | Outpatient (CLI) | payer OTHER ==
[2022-03-21 15:46] LABS: BASO # 0.1 10^3/uL (0.0-0.2); BASO % 0.8 % (0.0-1.0); EOS # 0.2 10^3/uL (0.0-0.5); EOS % 2.7 % (0.0-3.0); HEMATOCRIT 40.9 % (36.0-47.0); LYMPH # 1.5 10^3/uL (1.5-5.0); LYMPH % 23.1 % (24.0-44.0); MEAN CORPUSCULAR HEMOGLOBIN 28.2 pg (27.0-33.0); MEAN CORPUSCULAR HGB CONC 31.8 g/dl (32.0-36.5); MEAN CORPUSCULAR VOLUME 88.7 fl (80.0-96.0); MONO # 0.5 10^3/uL (0.0-0.8); MONO % 7.1 % (2.0-8.0); NEUTROPHILS # 4.4 10^3/uL (1.5-8.5); NEUTROPHILS % 66.1 % (36.0-66.0); PLATELET COUNT, AUTOMATED 351 10^3/uL (150-450); RED BLOOD COUNT 4.61 10^6/uL (4.00-5.40); WHITE BLOOD COUNT 6.6 10^3/uL (4.0-10.0)
[2022-03-21 16:28] LABS: BLOOD UREA NITROGEN 14 MG/DL (7-18); CALCIUM LEVEL 9.2 MG/DL (8.5-10.1); CARBON DIOXIDE LEVEL 32 MEQ/L (21-32); CHLORIDE LEVEL 103 MEQ/L (98-107); CHOLESTEROL LEVEL 224 MG/DL (<200); CHOLESTEROL RISK RATIO 2.574 (<5); CREATININE FOR GFR 0.73 MG/DL (0.55-1.30); GLOMERULAR FILTRATION RATE > 60.0 (>51); GLUCOSE, FASTING 85 MG/DL (70-100); HDL CHOLESTEROL 87 MG/DL (>40); LDL CHOLESTEROL 116 MG/DL (<100); NON-HDL-C 137 MG/DL; POTASSIUM SERUM 4.5 MEQ/L (3.5-5.1); SODIUM LEVEL 137 MEQ/L (136-145); TRIGLYCERIDES LEVEL 105 MG/DL (<150)
== END ==
LOC: M PLALAB 13:11
PROVIDERS: ATTEND Nurse Practitioner Family
DX: Z01.818 Encounter for other preprocedural examination (principal)

== ENCOUNTER → 2022-03-28 | Outpatient (CLI) | payer OTHER | LOC: M LABSMTC 11:25 | PROVIDERS: ATTEND Orthopaedic Surgery | DX: Z11.52 Encounter for screening for COVID-19 (principal) ==

== ENCOUNTER → 2022-09-25 | Outpatient (CLI) | payer OTHER ==
[2022-09-25 15:20] LABS: APPEARANCE, URINE MANUAL CLEAR (CLEAR); BILIRUBIN, URINE MANUAL NEGATIVE (NEGATIVE); BLOOD URINE MANUAL NEGATIVE (NEGATIVE); COLOR, URINE MANUAL YELLOW (YELLOW); GLUCOSE, URINE (UA) MANUAL NEGATIVE (NEGATIVE); KETONE, URINE MANUAL NEGATIVE (NEGATIVE); LEUKOCYTE ESTERASE, URINE MAN POSITIVE (NEGATIVE); NITRITE, URINE MANUAL NEGATIVE (NEGATIVE); PROTEIN, URINE MANUAL NEGATIVE (NEGATIVE); SPECIFIC GRAVITY,URINE MANUAL 1.025 (1.002-1.035); UROBILINOGEN, URINE MANUAL NORMAL (NORMAL)
[2022-09-25 15:26] LABS: HEMATOCRIT 38.8 % (36.0-47.0); HEMOGLOBIN 12.4 g/dl (12.0-15.5); MEAN CORPUSCULAR HEMOGLOBIN 28.7 pg (27.0-33.0); MEAN CORPUSCULAR VOLUME 89.8 fl (80.0-96.0); PLATELET COUNT, AUTOMATED 311 10^3/uL (150-450); RED BLOOD COUNT 4.32 10^6/uL (4.00-5.40); WHITE BLOOD COUNT 6.8 10^3/uL (4.0-10.0)
[2022-09-25 15:37] LABS: INR 0.93; PROTHROMBIN TIME 12.7 SECONDS (12.5-14.5)
[2022-09-25 15:38] LABS: PARTIAL THROMBOPLASTIN TIME 26.8 SECONDS (24.8-34.2)
[2022-09-25 15:40] LABS: BACTERIA, URINE MOD AMOUNT; RBC, URINE 0-1 /hpf (0-3); SQUAMOUS EPITHELIAL CELL URINE SMALL AMOUNT /hpf (SMALL AMT)
[2022-09-25 15:41] LABS: CALCIUM OXALATE CRYSTALS,URINE MOD AMOUNT /hpf
== END ==
LOC: M PLALAB 13:14
PROVIDERS: ATTEND Podiatrist
DX: M79.671 Pain in right foot (principal); M19.071 Primary osteoarthritis, right ankle and foot

== ENCOUNTER → 2022-10-01 | Outpatient (CLI) | payer OTHER ==
[2022-10-01 12:12] LABS: APPEARANCE, URINE MANUAL CLEAR (CLEAR); COLOR, URINE MANUAL YELLOW (YELLOW)
[2022-10-01 12:13] LABS: SPECIFIC GRAVITY,URINE MANUAL 1.025 (1.002-1.035)
[2022-10-01 12:14] LABS: BILIRUBIN, URINE MANUAL NEGATIVE (NEGATIVE); BLOOD URINE MANUAL NEGATIVE (NEGATIVE); GLUCOSE, URINE (UA) MANUAL NEGATIVE (NEGATIVE); KETONE, URINE MANUAL 1+ mg/dL (NEGATIVE); NITRITE, URINE MANUAL NEGATIVE (NEGATIVE); PROTEIN, URINE MANUAL TRACE mg/dL (NEGATIVE); UROBILINOGEN, URINE MANUAL NORMAL (NORMAL)
[2022-10-01 12:15] LABS: LEUKOCYTE ESTERASE, URINE MAN TRACE (NEGATIVE)
[2022-10-01 12:36] LABS: BACTERIA, URINE SMALL AMOUNT; HYALINE CAST, URINE NONE SEEN /lpf (0-1); MUCUS, URINE MOD AMOUNT (NEGATIVE); RBC, URINE 0-1 /hpf (0-3); SQUAMOUS EPITHELIAL CELL URINE SMALL AMOUNT /hpf (SMALL AMT)
== END ==
LOC: M PLALAB 08:39
PROVIDERS: ATTEND Podiatrist
DX: M19.071 Primary osteoarthritis, right ankle and foot (principal); M79.671 Pain in right foot

== ENCOUNTER → 2023-01-15 | Outpatient (CLI) | payer OTHER ==
[2023-01-15 15:37] LABS: THYROID STIMULATING HORMONE 1.336 uIU/ML (0.55-4.78)
[2023-01-15 15:38] LABS: FREE T4 1.03 NG/DL (0.89-1.76)
== END ==
LOC: M PLALAB 13:06
DX: Z13.29 Encounter for screening for other suspected endocrine disorder (principal)

== ENCOUNTER → 2023-01-18 | Outpatient (CLI) | payer OTHER | LOC: M WHC 07:15 | PROVIDERS: ATTEND Obstetrics & Gynecology | DX: Z12.31 Encounter for screening mammogram for malignant neoplasm of breast (principal) ==

== ENCOUNTER → 2023-02-18 | Outpatient (CLI) | payer OTHER ==
[2023-02-18 16:13] LABS: BASO % 0.7 % (0.0-1.0); EOS # 0.1 10^3/uL (0.0-0.5); EOS % 2.1 % (0.0-3.0); HEMATOCRIT 37.6 % (36.0-47.0); HEMOGLOBIN 12.3 g/dl (12.0-15.5); LYMPH # 1.2 10^3/uL (1.5-5.0); LYMPH % 20.2 % (24.0-44.0); MEAN CORPUSCULAR HEMOGLOBIN 29.4 pg (27.0-33.0); MEAN CORPUSCULAR HGB CONC 32.7 g/dl (32.0-36.5); MONO # 0.4 10^3/uL (0.0-0.8); MONO % 7.3 % (2.0-8.0); NEUTROPHILS % 69.4 % (36.0-66.0); PLATELET COUNT, AUTOMATED 339 10^3/uL (150-450); RED BLOOD COUNT 4.18 10^6/uL (4.00-5.40); WHITE BLOOD COUNT 5.8 10^3/uL (4.0-10.0)
[2023-02-18 16:39] LABS: TOTAL IRON BINDING CAPACITY 314 UG/DL (250-425)
[2023-02-18 16:41] LABS: IRON (FE) 90 UG/DL (50-170); PERCENT SATURATION 28.7 % (13.2-45.0)
[2023-02-18 16:43] LABS: FREE T4 0.98 NG/DL (0.89-1.76)
[2023-02-18 16:44] LABS: THYROID STIMULATING HORMONE 0.762 uIU/ML (0.55-4.78)
[2023-02-18 16:45] LABS: FREE T3 2.7 PG/ML (2.3-4.2); VITAMIN B12 LEVEL 585 PG/ML (211-911)
[2023-02-18 16:46] LABS: FOLATE > 24.00 NG/ML (>5.4); TOTAL 25(OH) VITAMIN D 90.9 NG/ML (20.0-100.0)
[2023-02-18 18:18] LABS: THYROID PEROXIDASE ANTIBODY < 28.0 U/ML (<60.0)
== END ==
LOC: M PLALAB 13:07
PROVIDERS: ATTEND Nurse Practitioner Family
DX: Z98.84 Bariatric surgery status (principal); L65.9 Nonscarring hair loss, unspecified

== ENCOUNTER 2023-04-19 13:28 | Emergency (ER) | payer OTHER ==
[~2023-04-19] VITALS: Ht 167.6 cm; Wt 76.4 kg
[2023-04-19 13:49] VITALS: TEMP 98
[2023-04-19 14:39] LABS: BASO % 0.4 % (0.0-1.0); EOS # 0.1 10^3/uL (0.0-0.5); EOS % 1.9 % (0.0-3.0); HEMATOCRIT 36.3 % (36.0-47.0); MEAN CORPUSCULAR HEMOGLOBIN 29.5 pg (27.0-33.0); MEAN CORPUSCULAR HGB CONC 33.1 g/dl (32.0-36.5); MEAN CORPUSCULAR VOLUME 89.2 fl (80.0-96.0); MONO # 0.5 10^3/uL (0.0-0.8); MONO % 6.2 % (2.0-8.0); NEUTROPHILS # 5.7 10^3/uL (1.5-8.5); NEUTROPHILS % 77.1 % (36.0-66.0); PLATELET COUNT, AUTOMATED 270 10^3/uL (150-450); RED BLOOD COUNT 4.07 10^6/uL (4.00-5.40); WHITE BLOOD COUNT 7.4 10^3/uL (4.0-10.0)
[2023-04-19] MEDS ORDERED: POLYVINYL ALCOHOL OPHTH SOLN 15ML (LIQUITEARS) OU PRN (14:45)
[2023-04-19 14:51] VITALS: O2SAT 100
[2023-04-19 14:51] LABS: INR 1.02; PROTHROMBIN TIME 13.1 SECONDS (12.5-14.5)
[2023-04-19 14:52] LABS: PARTIAL THROMBOPLASTIN TIME 27.8 SECONDS (24.8-34.2)
[2023-04-19 15:02] LABS: CK-MB VALUE MASS 1.1 NG/ML (<3.6)
[2023-04-19 15:03] LABS: LIPASE 42 U/L (12-53)
[2023-04-19 15:04] LABS: AMYLASE 100 U/L (30-118); CPK CREATINE PHOSPHOKINASE 76 U/L (34-145); MB/CK RELATIVE INDEX 1.44 (< OR =4)
[2023-04-19 15:07] LABS: ALBUMIN 3.7 G/DL (3.2-5.2); ALKALINE PHOSPHATASE 73 U/L (46-116); ALT/SGPT 59 U/L (7.0-40); AST/SGOT 28 U/L (<34); BILIRUBIN,DIRECT < 0.1 MG/DL (<0.4); BILIRUBIN,TOTAL 0.3 MG/DL (0.3-1.2); BLOOD UREA NITROGEN 13 MG/DL (9-23); CALCIUM LEVEL 8.6 MG/DL (8.5-10.1); CARBON DIOXIDE LEVEL 30 MMOL/L (20-31); CHLORIDE LEVEL 105 MMOL/L (98-107); CREATININE FOR GFR 0.73 MG/DL (0.55-1.30); GLOMERULAR FILTRATION RATE > 60.0 (>51); GLUCOSE, FASTING 90 MG/DL (60-100); POTASSIUM SERUM 4.1 MMOL/L (3.5-5.1); SODIUM LEVEL 140 MMOL/L (136-145); TOTAL PROTEIN 6.4 G/DL (5.7-8.2)
[2023-04-19] MEDS ORDERED: METHOCARBAMOL 1,000 MG/10 ML VIAL IV ONE (15:15)
[2023-04-19] MEDS ORDERED: ACETAMINOPHEN 1000MG 100ML IV BAG IV ONE (15:15)
[2023-04-19] MEDS ORDERED: METH-1164 PO (15:47)
[2023-04-19] MEDS ORDERED: ACETAMINOPHEN TAB 650MG DOSE (2X325MG) PO ONE (16:00)
[2023-04-19 16:20] VITALS: BP 124/66
== END 2023-04-19 16:28 | disposition home or self-care (01) ==
LOC: M ED 13:28
DX: M54.2 Cervicalgia (principal); V49.10XA Passenger injured in collision with unspecified motor vehicles in nontraffic accident, initial encounter; Z98.84 Bariatric surgery status; Z91.040 Latex allergy status; Z91.048 Other nonmedicinal substance allergy status; Z79.810 Long term (current) use of selective estrogen receptor modulators (SERMs); Z79.899 Other long term (current) drug therapy
CPT/HCPCS: 70450; 71045; 72125; 80048; 80076; 82150; 82550; 82553; 83605; 83690; 84484; 85025; 85610; 85730; 86850; 86900; 86901; 93041; 94760; 96374; 99284; J2800

== ENCOUNTER → 2023-08-23 | Outpatient (CLI) | payer OTHER ==
[~2023-08-23] MED LIST changes: -BIOT50004 PO; +BIOT5CAP8 PO; -EFFE150C2 PO; +EFFE150C3 PO; +LORA-1041 PO; -LORA-674 PO; +METH-1164 PO
== END ==
LOC: M RAD 07:52
PROVIDERS: ATTEND Nurse Practitioner Family
DX: R10.13 Epigastric pain (principal); R10.11 Right upper quadrant pain; K76.0 Fatty (change of) liver, not elsewhere classified

== ENCOUNTER → 2024-01-16 | Outpatient (CLI) | payer OTHER ==
[2024-01-16 12:14] LABS: BASO % 0.6 % (0.0-1.0); EOS # 0.1 10^3/uL (0.0-0.5); EOS % 1.9 % (0.0-3.0); HEMATOCRIT 39.2 % (36.0-47.0); HEMOGLOBIN 13.1 g/dl (12.0-15.5); LYMPH # 1.4 10^3/uL (1.5-5.0); LYMPH % 22.5 % (24.0-44.0); MEAN CORPUSCULAR HGB CONC 33.4 g/dl (32.0-36.5); MEAN CORPUSCULAR VOLUME 86.7 fl (80.0-96.0); MONO # 0.4 10^3/uL (0.0-0.8); MONO % 6.3 % (2.0-8.0); NEUTROPHILS # 4.4 10^3/uL (1.5-8.5); NEUTROPHILS % 68.5 % (36.0-66.0); PLATELET COUNT, AUTOMATED 280 10^3/uL (150-450); RED BLOOD COUNT 4.52 10^6/uL (4.00-5.40); WHITE BLOOD COUNT 6.4 10^3/uL (4.0-10.0)
[2024-01-16 12:38] LABS: BLOOD UREA NITROGEN 15 MG/DL (9-23); CALCIUM LEVEL 8.9 MG/DL (8.5-10.1); CARBON DIOXIDE LEVEL 26 MMOL/L (20-31); CHLORIDE LEVEL 108 MMOL/L (98-107); CREATININE FOR GFR 0.82 MG/DL (0.55-1.30); GLOMERULAR FILTRATION RATE > 60.0 (>51); GLUCOSE, FASTING 81 MG/DL (60-100); POTASSIUM SERUM 4.1 MMOL/L (3.5-5.1); SODIUM LEVEL 141 MMOL/L (136-145)
[2024-01-16 12:41] LABS: THYROID STIMULATING HORMONE 1.018 uIU/ML (0.55-4.78)
[2024-01-16 12:42] LABS: FREE T4 1.03 NG/DL (0.89-1.76)
== END ==
LOC: M RAD 11:29
PROVIDERS: ATTEND Nurse Practitioner Family
DX: R10.13 Epigastric pain (principal); R00.2 Palpitations; R07.89 Other chest pain; K82.8 Other specified diseases of gallbladder
CPT/HCPCS: 36415; 78227; 80048; 83735; 83880; 84439; 84443; 85025; 85379; A9537

== ENCOUNTER → 2024-01-21 | Outpatient (CLI) | payer OTHER | LOC: M WHC 07:28 | PROVIDERS: ATTEND Nurse Practitioner Family | DX: Z12.31 Encounter for screening mammogram for malignant neoplasm of breast (principal) ==

== ENCOUNTER 2025-04-07 07:08 | Day surgery (SDC) | payer OTHER ==
[~2025-04-07] VITALS: Ht 167.6 cm; Wt 72.2 kg
[~2025-04-07 07:08] MED LIST changes: +BUPR150T12 PO; +OMEG10002 PO; +THERTAB52 PO; +VENL150C43 PO
[2025-04-07] MEDS ORDERED: LIDOCAINE 2% 100 MG/5 ML SDV (FOR ANES.) As Ordered ONE (07:18)
[2025-04-07 07:49] VITALS: TEMP 97.3
[2025-04-07 08:05] VITALS: BP 98/52; O2SAT 98
== END 2025-04-07 08:11 | disposition home or self-care (01) ==
LOC: M OPP 07:08
PROVIDERS: ATTEND Surgery
DX: Z12.11 Encounter for screening for malignant neoplasm of colon (principal); K64.0 First degree hemorrhoids; Z79.899 Other long term (current) drug therapy; Z98.84 Bariatric surgery status

== ENCOUNTER → 2025-07-04 | Outpatient (CLI) | payer OTHER | LOC: M RAD 13:08 | PROVIDERS: ATTEND Registered Nurse | DX: R05.9 Cough, unspecified (principal) ==